=== PATIENT | male | born 1945 | race Hispanic/Latino ===

== ENCOUNTER → 2018-10-25 | Outpatient (CLI) | payer MEDICARE ==
--- NOTE | 2018-10-25 13:26 | Diagnostic Imaging Report ---
EXAM: CT ABDOMEN AND PELVIS without IV CONTRAST DATE: 10/25/2018 Time stamp on Exam: 9:50 AM INDICATION: Hematuria COMPARISON: CT scan of the abdomen and pelvis dated 08/19/2015 TECHNIQUE: The abdomen and pelvis were scanned using a multidetector helical scanner. Coronal and sagittal reformations were obtained. Routine protocol performed. Low-dose technique was utilized to maintain the lowest effective dose to the patient. IV Contrast: None Oral Contrast: None Radiation Dose: Total DLP 756.87 mGy*cm Estimated effective dose: DLP x 0.015 x size factor FINDINGS: LOWER THORAX: No consolidations or nodules. Coronary artery calcification. LIVER: No masses BILIARY: The gallbladder is unremarkable. No ductal dilatation. SPLEEN: No masses PANCREAS: No masses ADRENALS: No nodules KIDNEYS: Nonobstructing left interpolar 4 mm stone. No masses. No hydronephrosis. GI TRACT: Postsurgical changes associated with a gastrectomy. VESSELS: Atherosclerotic calcification. PERITONEUM/RETROPERITONEUM: No free air or fluid LYMPH NODES: No lymphadenopathy REPRODUCTIVE ORGANS: Unremarkable BLADDER: Large stone previously present in the bladder that measured 1.9 cm now is represented by two small stones with composite measurement of 0.7 cm and situated to the left side of the bladder. Prostate is enlarged measuring 6.1 x 7.0 cm. SOFT TISSUES: Small fat-containing umbilical hernia. BONES: No suspicious lytic or blastic bone lesions. Disc space narrowing at L5-S1. IMPRESSION: 1. Nonobstructing left renal stone. 2. Bladder stones with stone burden less than compared to previous study. 3. Significant prostate enlargement. Signed by: Dr. Reese Rose DO on 10/25/2018 1:23 PM
== END ==
LOC: CT 09:07
PROVIDERS: ATTEND Emergency Medicine
DX: R31.9 Hematuria, unspecified (principal)
CPT/HCPCS: 74176

== ENCOUNTER → 2019-02-01 | Outpatient (CLI) | payer MEDICARE ==
--- NOTE | 2019-02-01 15:33 | Diagnostic Imaging Report ---
Exam: AP pelvis and right hip History: Pain Comparison: None. Findings: No fracture or malalignment. Minimal joint space narrowing without osteophytosis. Cyst in the right femoral neck. No abnormal soft tissue calcification or soft tissue defect. Impression: No acute osseous abnormality Signed by: Dr. Marlon Fink M.D. on 02/01/2019 3:30 PM
== END ==
LOC: RAD 13:29
PROVIDERS: ATTEND Emergency Medicine
DX: M25.559 Pain in unspecified hip (principal)

== ENCOUNTER 2019-12-31 20:15 | Emergency (ER) | payer MEDICARE ==
[~2019-12-31] VITALS: Ht 177.8 cm; Wt 104.3 kg
--- OUTSIDE RECORDS SUMMARY | 2019-12-31 20:19 | XMS REPORT | Summary of Care ---
Author Author [facility] Organization [facility] Address Unknown Phone Unavailable Encounter KILLIAN Shields(LORA) [id number] Date(s): 01/29/16 - 01/29/16 [facility] [address] [place] [address]- [phone] Discharge Disposition: Home Attending Physician: Jimmie Polanco MD Referring Physician: Jimmie Polanco MD Vital Signs 1 2 3 Most recent to oldest [Reference Range]: 172.72 cm (01/22/16 4:03 PM) Height 97.7 DegF (01/22/16 4:03 PM) Temperature Oral [96.4-99.1 DegF] 113/77 mmHg (01/29/16 9:45 AM) 108/60 mmHg (01/29/16 9:30 AM) 126/69 mmHg (01/29/16 9:15 AM) Blood Pressure [90-140/60-90 mmHg] 19 BRMIN (01/29/16 8:54 AM) 12 BRMIN *LOW* (01/29/16 8:39 AM) 10 BRMIN *LOW* (01/29/16 8:23 AM) Respiratory Rate [14-20 BRMIN] 70 bpm (01/22/16 4:03 PM) Peripheral Pulse Rate [60-100 bpm] 102.528 kg (01/22/16 4:03 PM) Weight 34.37 m2 (01/22/16 4:03 PM) Body Mass Index Problem List Condition Effective Dates Status Health Status Informan t Acid Resolved reflux(Confirmed) Anemia1 Active Anxiety(Confirmed) Resolved Bleeding Active precautions(Confirme d) BPH - Benign Resolved prostatic hypertrophy(Confirme d) Bronchitis(Confirmed Resolved ) CAD - Coronary Active artery disease(Confirmed) Cancer(Confirmed)2 Resolved Chemotherapy(Confirm Active ed) Chemotherapy(Confirm Resolved ed) Cough(Confirmed) Resolved Depression(Confirmed Resolved ) Diabetes Resolved mellitus(Confirmed) DVT - Deep vein Active thrombosis(Confirmed )3 Gastrectomy(Confirme Active d) Gastric Active cancer(Confirmed) HTN - Active Hypertension(Confirm ed) Hypercholesterolemia Active 4 Hypertension(Confirm Resolved ed) Hypotension due to Resolved drugs(Confirmed)5 Nausea(Confirmed) Resolved Obesity(Confirmed) Active Reflux(Confirmed) Resolved Shortness of Resolved breath(Confirmed)6 VRE(Confirmed)7, 8 Active Weakness - Resolved general(Confirmed) 1Data migrated from [employer] on 01/20/15. 2stomach 3Left Arm 4Data migrated from [employer] on 01/20/15. 5associated with chemo therapy 6pt denies having any chest pain with shortness of breath /12/30 left leg wound 8Problem added by Discern Expert. Allergies, Adverse Reactions, Alerts Substance Reaction Severity Status iodinated radiocontrast Swelling, NOS Active dyes1 1Data migrated from [employer] on 03/19/15. Originally documented as CONTRAST DYE. swelling Medications Cipro I.V. 400 mg/200 mL intravenous solution 400 mg, 200 mL, Route: IVPB, Drug form: INJ, ONCE, Dosing Weight 102.528, kg, St art date: 01/29/16 6:30:00 CDT, Stop date: 01/29/16 6:30:00 CDT Notes: Do not refrigerate Start Date: 01/29/16 Stop Date: 01/29/16 Status: Ordered ciprofloxacin (ANES) Route: IV, Drug form: INJ, ONCE, Stop date: 01/29/16 8:22:00 CDT Start Date: 01/29/16 Stop Date: 01/29/16 Status: Completed ePHEDrine (ANES) Route: IV, Drug form: INJ, ONCE, Stop date: 01/29/16 8:28:00 CDT Start Date: 01/29/16 Stop Date: 01/29/16 Status: Completed fentaNYL (ANES) Route: IV, Drug form: INJ, ONCE, Stop date: 01/29/16 8:27:00 CDT Start Date: 01/29/16 Stop Date: 01/29/16 Status: Completed Lactated Ringers Injection IV 1000 mL 1,000 mL, Rate: 25 ml/hr, Infuse over: 40 hr, Route: IV, Dosing Weight 102.528 k g, Total Volume: 1,000, Start date: 01/29/16 6:12:00 CDT, Duration: 30 day, Stop date: 02/28/16 6:11:00 CDT Start Date: 01/29/16 Stop Date: 01/29/16 Status: Discontinued lidocaine (ANES) Route: IV, Drug form: INJ, ONCE, Stop date: 01/29/16 8:27:00 CDT Start Date: 01/29/16 Stop Date: 01/29/16 Status: Completed LR 1000 mL INJ (ANES) Route: IV, Total Volume: 1,000, Start date: 01/29/16 7:36:00 CDT, Stop date: 06/05 8:36:00 CDT Start Date: 01/29/16 Stop Date: 01/29/16 Status: Completed midazolam (ANES) Route: IV, Drug form: SOLN, ONCE, Stop date: 01/29/16 8:22:00 CDT Start Date: 01/29/16 Stop Date: 01/29/16 Status: Completed ondansetron (ANES) Route: IV, Drug form: INJ, ONCE, Stop date: 01/29/16 8:27:00 CDT Start Date: 01/29/16 Stop Date: 01/29/16 Status: Completed propofol (ANES) Route: IV, Drug form: INJ, ONCE, Stop date: 01/29/16 8:27:00 CDT Start Date: 01/29/16 Stop Date: 01/29/16 Status: Completed Pyridium 100 mg oral tablet 100 mg = 1 tab, PO, TID, PRN Dysuria, X 2 day, # 6 tab, 0 Refill(s) Start Date: 01/29/16 Stop Date: 01/31/16 Status: Completed Results ELECTROLYTES Most recent to 1 oldest [Reference Range]: Sodium Lvl [135-145 141 mEq/L mEq/L] (01/22/16 4:31 PM) Potassium Lvl 3.4 mEq/L [3.5-5.1 mEq/L] *LOW* (01/22/16 4:31 PM) Chloride Lvl [95-109 108 mEq/L mEq/L] (01/22/16 4:31 PM) CO2 [24-32 mEq/L] 22 mEq/L *LOW* (01/22/16 4:31 PM) AGAP [10.0-20.0 14.4 mEq/L mEq/L] (01/22/16 4:31 PM) CHEM PANEL Most recent to 1 oldest [Reference Range]: Creatinine Lvl 1.21 mg/dL [0.50-1.40 mg/dL] (01/22/16 4:31 PM) eGFR 60 mL/min/1.73m2 1 *NA* (01/22/16 4:31 PM) BUN [7-22 mg/dL] 16 mg/dL (01/22/16 4:31 PM) Glucose Lvl [70-99 101 mg/dL mg/dL] *HI* (01/22/16 4:31 PM) Calcium Lvl 8.3 mg/dL [8.5-10.5 mg/dL] *LOW* (01/22/16 4:31 PM) 1Result Comment: The eGFR is calculated using the CKD-EPI formula. In most young, healthy individuals the eGFR will be >90 mL/min/1.73m2. The eGFR declines with age. An eGFR of 60-89 may be normal in some populations, particularly the elderly, for whom the CKD-EPI formula has not been extensively validated. Use of the eGFR is not recommended in the following populations: Individuals with unstable creatinine concentrations, including patients and those with serious co-morbid conditions. Patients with extremes in muscle mass or diet. The data above are obtained from the National Kidney Disease Education Program ( NKDEP) which additionally recommends that when the eGFR is used in patients with extremes of body mass index for purposes of drug dosing, the eGFR should be mul tiplied by the estimated BMI. URINE AND STOOL Most recent to 1 oldest [Reference Range]: UA Turbidity [Clear] Clear (01/22/16 4:31 PM) UA Color [Yellow] Yellow *NA* (01/22/16 4:31 PM) UA pH [5.0-8.0] 5.0 (01/22/16 4:31 PM) UA Spec Grav 1.021 [<=1.030] (01/22/16 4:31 PM) UA Glucose [Negative Negative mg/dL mg/dL] *NA* (01/22/16 4:31 PM) UA Blood [Negative] Negative (01/22/16 4:31 PM) UA Ketones [Negative Negative mg/dL mg/dL] *NA* (01/22/16 4:31 PM) UA Protein [Negative Negative mg/dL mg/dL] (01/22/16 4:31 PM) UA Urobilinogen <=1.0 mg/dL [0.1-1.0 mg/dL] *NA* (01/22/16 4:31 PM) UA Bili [Negative] Negative *NA* (01/22/16 4:31 PM) UA Leuk Est Moderate [Negative] *ABN* (01/22/16 4:31 PM) UA Nitrite Positive [Negative] *ABN* (01/22/16 4:31 PM) UA WBC [0-5 /HPF] 25 /HPF *HI* (01/22/16 4:31 PM) UA RBC [0-2 /HPF] 4 /HPF *HI* (01/22/16 4:31 PM) UA Sq Epi None Seen *NA* (01/22/16 4:31 PM) HEMATOLOGY Most recent to 1 oldest [Reference Range]: WBC [3.7-10.4 K/CMM] 6.9 K/CMM (01/22/16 4:31 PM) RBC [4.70-6.10 4.33 M/CMM M/CMM] *LOW* (01/22/16 4:31 PM) Hgb [14.0-18.0 g/dL] 13.3 g/dL *LOW* (01/22/16 4:31 PM) Hct [42.0-54.0 %] 40.3 % *LOW* (01/22/16 4:31 PM) MCV [80.0-94.0 fL] 93.0 fL (01/22/16 4:31 PM) MCH [27.0-31.0 pg] 30.8 pg (01/22/16 4:31 PM) MCHC [32.0-36.0 33.1 g/dL g/dL] (01/22/16 4:31 PM) RDW [11.5-14.5 %] 14.5 % (01/22/16 4:31 PM) Platelet [133-450 245 K/CMM K/CMM] (01/22/16 4:31 PM) MPV [7.4-10.4 fL] 7.9 fL (01/22/16 4:31 PM) Segs [45.0-75.0 %] 64.7 % (01/22/16 4:31 PM) Lymphocytes 24.3 % [20.0-40.0 %] (01/22/16 4:31 PM) Monocytes [2.0-12.0 8.0 % %] (01/22/16 4:31 PM) Eosinophils [0.0-4.0 2.3 % %] (01/22/16 4:31 PM) Basophils [0.0-1.0 0.7 % %] (01/22/16 4:31 PM) Segs-Bands # 4.5 K/CMM [1.5-8.1 K/CMM] (01/22/16 4:31 PM) Lymphocytes # 1.7 K/CMM [1.0-5.5 K/CMM] (01/22/16 4:31 PM) Monocytes # [0.0-0.8 0.6 K/CMM K/CMM] (01/22/16 4:31 PM) Eosinophils # 0.2 K/CMM [0.0-0.5 K/CMM] (01/22/16 4:31 PM) Basophils # [0.0-0.2 0.1 K/CMM K/CMM] (01/22/16 4:31 PM) Immunizations No data available for this section Procedures Procedure Date Related Diagnosis Body Site Colonoscopy Complete gastrectomy Esophagogastroduodenoscopy Gastrectomy Operation1 Operation2 Operation3 1foot and neck surgeries 2port-a- cath placement 3stomach remove due to cancer Social History Social History Type Response Alcohol Past Smoking Status Never smoker; Exposure to T obacco Smoke None; Cigarette Smoking Last 365 Days No; Reg Smoking Cessation Counseli ng No Assessment and Plan No data available for this section
--- OUTSIDE RECORDS SUMMARY | 2019-12-31 20:19 | XMS REPORT | Summary of Care ---
Author Author [facility] Organization [facility] Address Unknown Phone Unavailable Encounter KILLIAN Shields(LORA) [id number] Date(s): 04/29/15 - 04/29/15 [facility] [address] [place] [address]- Discharge Disposition: Home Attending Physician: Vinh Cotter MD Referring Physician: Vinh Cotter MD Vital Signs 1 2 3 Most recent to oldest [Reference Range]: 172.72 cm (04/24/15 1:55 PM) Height 1 2 3 Most recent to oldest [Reference Range]: 98.0 DegF (04/24/15 2:04 PM) Temperature Oral [96.4-99.1 DegF] 1 2 3 Most recent to oldest [Reference Range]: 139/78 mmHg (04/29/15 12:00 PM) 128/68 mmHg (04/29/15 11:30 AM) 121/53 mmHg (04/29/15 11:00 AM) Blood Pressure [90-140/60-90 mmHg] 1 2 3 Most recent to oldest [Reference Range]: 15 BRMIN (04/29/15 10:30 AM) 16 BRMIN (04/29/15 10:15 AM) 14 BRMIN (04/29/15 10:00 AM) Respiratory Rate [14-20 BRMIN] 1 2 3 Most recent to oldest [Reference Range]: 80 bpm (04/24/15 2:04 PM) Peripheral Pulse Rate [60-100 bpm] 1 2 3 Most recent to oldest [Reference Range]: 99.545 kg (04/24/15 1:55 PM) Weight 1 2 3 Most recent to oldest [Reference Range]: 33.37 m2 (04/24/15 1:55 PM) Body Mass Index Problem List Condition [...] any chest pain with shortness of breath 76// left leg wound 8Problem added by Discern Expert. Allergies, Adverse Reactions, Alerts Substance Reaction Severity Status iodinated radiocontrast Swelling, NOS Active dyes1 1Data migrated from [employer] on 03/19/15. Originally documented as CONTRAST DYE. swelling Medications acetaminophen 1,000 mg, Route: IVPB, Drug form: INJ, ONCE, Dosing Weight 99.545, kg, PRN Pain Score 1-3, Start date: 04/29/15 9:40:00, Duration: 1 doses or times, Stop date: Limited # of times Start Date: 04/29/15 Stop Date: 04/29/15 Status: Discontinued Ancef 2 gm, Route: IVPB, ONCE, Dosing Weight 99.545, kg, Start date: 04/29/15 9:24:00, Duration: 1 doses or times, Stop date: 04/29/15 9:24:00 Start Date: 04/29/15 Stop Date: 04/29/15 Status: Completed Colace 100 mg oral capsule 100 mg = 1 cap, PO, BID, PRN Constipation, # 20 cap, 0 Refill(s) Start Date: 04/29/15 Status: Ordered fentaNYL 50 microgram, Route: IVP, Q5Min, Dosing Weight 99.545, kg, PRN Pain Score 7-10, Start date: 04/29/15 9:40:00, Duration: 2 doses or times, Stop date: Limited # o f times Start Date: 04/29/15 Stop Date: 04/29/15 Status: Discontinued flumazenil 0.2 mg, Route: IVP, PRN, Dosing Weight 99.545, kg, PRN Benzodiazepine Reversal, Initial dose, Start date: 04/29/15 9:40:00, Duration: 30 day, Stop date: 5 9:39:00 Start Date: 04/29/15 Stop Date: 04/29/15 Status: Discontinued hydromorphone 0.5 mg, Route: IVP, Q5Min, Dosing Weight 99.545, kg, PRN Pain Score 7-10, Start date: 04/29/15 9:40:00, Duration: 4 doses or times, Stop date: Limited # of time s Start Date: 04/29/15 Stop Date: 04/29/15 Status: Discontinued Lactated Ringers Injection IV 1000 mL 1,000 mL, Rate: 25 ml/hr, Infuse over: 40 hr, Route: IV, Dosing Weight 99.545 kg , Total Volume: 1,000, Start date: 04/29/15 8:32:00, Duration: 30 day, Stop date : 05/29/15 8:31:00 Start Date: 04/29/15 Stop Date: 04/29/15 Status: Discontinued meperidine 12.5 mg, Route: IVP, Q30Min, Dosing Weight 99.545, kg, PRN Other -See Comment, F or shivering, Start date: 04/29/15 9:40:00, Duration: 2 doses or times, Stop catarino e: Limited # of times Start Date: 04/29/15 Stop Date: 04/29/15 Status: Discontinued naloxone 0.04 mg, Route: IVP, Q2MIN, Dosing Weight 99.545, kg, PRN Narcotic Reversal, Sta rt date: 04/29/15 9:40:00, Duration: 8 doses or times, Stop date: Limited # of t imes Start Date: 04/29/15 Stop Date: 04/29/15 Status: Discontinued ondansetron 4 mg, Route: IVP, ONCE, Dosing Weight 99.545, kg, PRN Nausea & Vomiting, Start date: 04/29/15 9:40:00 Start Date: 04/29/15 Stop Date: 04/29/15 Status: Discontinued oxyCODONE 5 mg, Route: PO, Drug form: TAB, Q4H, Dosing Weight 99.545, kg, PRN Pain Score 4 -6, Start date: 04/29/15 9:40:00, Duration: 30 day, Stop date: 05/29/15 9:39:00 Start Date: 04/29/15 Stop Date: 04/29/15 Status: Discontinued tramadol 50 mg oral tablet 50 mg = 1 tab, PO, Q6H, PRN Pain, X 10 day, # 40 tab, 0 Refill(s) Start Date: 04/29/15 Stop Date: 05/09/15 Status: Ordered Results ELECTROLYTES Most recent to 1 oldest [Reference Range]: Sodium Lvl [135-145 140 mEq/L mEq/L] (04/24/15 2:26 PM) Potassium Lvl 3.7 mEq/L [3.5-5.1 mEq/L] (04/24/15 2:26 PM) Chloride Lvl [95-109 106 mEq/L mEq/L] (04/24/15 2:26 PM) CO2 [24-32 mEq/L] 26 mEq/L (04/24/15 2:26 PM) AGAP [10.0-20.0 11.7 mEq/L mEq/L] (04/24/15 2:26 PM) CHEM PANEL Most recent to 1 oldest [Reference Range]: Creatinine Lvl 1.1 mg/dL [0.5-1.4 mg/dL] (04/24/15 2:26 PM) eGFR 68 mL/min/1.73m2 1 *NA* (04/24/15 2:26 PM) BUN [7-22 mg/dL] 18 mg/dL (04/24/15 2:26 PM) B/C Ratio [6-25] 16 (04/24/15 2:26 PM) Glucose Lvl [70-99 101 mg/dL mg/dL] *HI* (04/24/15 2:26 PM) Total Protein 7.4 g/dL [6.4-8.4 g/dL] (04/24/15 2:26 PM) Albumin Lvl [3.5-5.0 3.7 g/dL g/dL] (04/24/15 2:26 PM) Globulin [2.0-4.0 3.7 g/dL g/dL] (04/24/15 2:26 PM) A/G Ratio [0.7-1.6] 1.0 (04/24/15 2:26 PM) Calcium Lvl 8.6 mg/dL [8.5-10.5 mg/dL] (04/24/15 2:26 PM) ALT [0-65 unit/L] 46 unit/L (04/24/15 2:26 PM) AST [0-37 unit/L] 25 unit/L (04/24/15 2:26 PM) Alk Phos [39-136 117 unit/L unit/L] (04/24/15 2:26 PM) Bili Total [0.2-1.3 0.4 mg/dL mg/dL] (04/24/15 2:26 PM) 1Result Comment: The eGFR is calculated [...] be mul tiplied by the estimated BMI. HEMATOLOGY Most recent to 1 oldest [Reference Range]: WBC [3.7-10.4 K/CMM] 6.8 K/CMM (04/24/15 2:26 PM) RBC [4.70-6.10 4.31 M/CMM M/CMM] *LOW* (04/24/15 2:26 PM) Hgb [14.0-18.0 g/dL] 13.2 g/dL *LOW* (04/24/15 2:26 PM) Hct [42.0-54.0 %] 40.2 % *LOW* (04/24/15 2:26 PM) MCV [80.0-94.0 fL] 93.3 fL (04/24/15 2:26 PM) MCH [27.0-31.0 pg] 30.6 pg (04/24/15 2:26 PM) MCHC [32.0-36.0 32.9 g/dL g/dL] (04/24/15 2:26 PM) RDW [11.5-14.5 %] 14.6 % *HI* (04/24/15 2:26 PM) Platelet [133-450 231 K/CMM K/CMM] (04/24/15 2:26 PM) MPV [7.4-10.4 fL] 8.0 fL (04/24/15 2:26 PM) Segs [45.0-75.0 %] 66.5 % (04/24/15 2:26 PM) Lymphocytes 22.3 % [20.0-40.0 %] (04/24/15 2:26 PM) Monocytes [2.0-12.0 9.5 % %] (04/24/15 2:26 PM) Eosinophils [0.0-4.0 1.2 % %] (04/24/15 2:26 PM) Basophils [0.0-1.0 0.5 % %] (04/24/15 2:26 PM) Segs-Bands # 4.5 K/CMM [1.5-8.1 K/CMM] (04/24/15 2:26 PM) Lymphocytes # 1.5 K/CMM [1.0-5.5 K/CMM] (04/24/15 2:26 PM) Monocytes # [0.0-0.8 0.6 K/CMM K/CMM] (04/24/15 2:26 PM) Eosinophils # 0.1 K/CMM [0.0-0.5 K/CMM] (04/24/15 2:26 PM) Immunizations No data available for this section Procedures Procedure Date Related Diagnosis Body Site Colonoscopy Complete gastrectomy Esophagogastroduodenoscopy Gastrectomy Operation1 Operation2 Operation3 1port-a- cath placement 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 Social History Social History Type Response Smoking Status Never smoker; Exposure to T obacco Smoke None; Cigarette Smoking Last 365 Days No; Reg Smoking Cessation Counseli ng No Assessment and Plan No data available for this section
--- OUTSIDE RECORDS SUMMARY | 2019-12-31 20:19 | XMS REPORT | CCD ---
Author Author [facility] Address Unknown Phone Unavailable Care Team Providers Care Registered Dietician Name Role Phone Candido Walters CP Allergies, Adverse Reactions, Alerts Substance Reaction Status iodinated radiocontrast dyes Active Problem List Condition Effective Dates Status Bleeding precautions Active BPH - Benign prostatic hypertrophy Resolved CAD - Coronary artery disease Active Cancer1 Resolved Chemotherapy Active Diabetes mellitus Resolved DVT - Deep vein thrombosis2 Active Gastrectomy Active Gastric cancer Active HTN - Hypertension Active poor circulation of legs Resolved Reflux Resolved VRE3, 4 Active 1stomach 2Left Arm left leg wound 4Problem added by Discern Expert. Results TUMOR MARKERS Most recent to oldest [Reference Range]: 1 CEA [0.0-3.0 ng/mL] 6.0 ng/mL *HI* (02/25/2013 16:58:00) CHEMISTRY Most recent to oldest [Reference Range]: 1 Sodium Lvl [135-145 mEq/L] 141 mEq/L (02/25/2013 16:58:00) Potassium Lvl [3.5-5.1 mEq/L] 3.9 mEq/L (02/25/2013 16:58:00) Chloride Lvl [95-109 mEq/L] 107 mEq/L (02/25/2013 16:58:00) CO2 [24-32 mEq/L] 25 mEq/L (02/25/2013 16:58:00) AGAP [10.0-20.0 mEq/L] 12.9 mEq/L (02/25/2013 16:58:00) Creatinine Lvl [0.5-1.4 mg/dL] 1.2 mg/dL (02/25/2013 16:58:00) eGFR 62 mL/min/1.73m2 1 *NA* (02/25/2013 16:58:00) BUN [7-22 mg/dL] 22 mg/dL (02/25/2013 16:58:00) B/C Ratio [6-25] 18 (02/25/2013 16:58:00) Glucose Lvl [70-99 mg/dL] 117 mg/dL 2 *HI* (02/25/2013 16:58:00) Total Protein [6.4-8.4 g/dL] 6.5 g/dL (02/25/2013 16:58:00) Albumin Lvl [3.5-5.0 g/dL] 3.7 g/dL (02/25/2013 16:58:00) Globulin [2.0-4.0 g/dL] 2.8 g/dL (02/25/2013:58:00) A/G Ratio [0.7-1.6] 1.3 (02/25/2013 16:58:00) Calcium Lvl [8.5-10.5 mg/dL] 8.4 mg/dL *LOW* (02/25/2013 16:58:00) ALT [0-65 unit/L] 32 unit/L (02/25/2013 16:58:00) AST [0-37 unit/L] 18 unit/L (02/25/2013 16:58:00) Alk Phos [39-136 unit/L] 109 unit/L (02/25/2013 16:58:00) Bili Total [0.2-1.3 mg/dL] 0.5 mg/dL (02/25/2013 16:58:00) 1Result Comment: The eGFR is calculated using [...] be mul tiplied by the estimated BMI. 2Interpretive Data: Adult reference range values reflect the clinical guidelines of the [place] [employer]. HEMATOLOGY Most recent to oldest [Reference Range]: 1 WBC [3.7-10.4 K/CMM] 2.0 K/CMM *LOW* (02/25/2013 16:58:00) RBC [4.70-6.10 M/CMM] 3.61 M/CMM *LOW* (02/25/2013 16:58:00) Hgb [14.0-18.0 g/dL] 10.9 g/dL *LOW* (02/25/2013 16:58:00) Hct [42.0-54.0 %] 33.3 % *LOW* (02/25/2013 16:58:00) MCV [80.0-94.0 fL] 92.3 fL (02/25/2013 16:58:00) MCH [27.0-31.0 pg] 30.3 pg (02/25/2013 16:58:00) MCHC [32.0-36.0 g/dL] 32.8 g/dL (02/25/2013 16:58:00) RDW [11.5-14.5 %] 14.7 % *HI* (02/25/2013 16:58:00) Platelet [133-450 K/CMM] 394 K/CMM (02/25/2013 16:58:00) MPV [7.4-10.4 fL] 8.0 fL (02/25/2013 16:58:00) Segs [45.0-75.0 %] 19.3 % *LOW* (02/25/2013 16:58:00) Lymphocytes [20.0-40.0 %] 41.0 % *HI* (02/25/2013 16:58:00) Monocytes [2.0-12.0 %] 39.0 % *HI* (02/25/2013 16:58:00) Eosinophils [0.0-4.0 %] 0.1 % (02/25/2013 16:58:00) Basophils [0.0-1.0 %] 0.6 % (02/25/2013 16:58:00) Segs-Bands # [1.5-8.1 K/CMM] 0.4 K/CMM *LOW* (02/25/2013 16:58:00) Lymphocytes # [1.0-5.5 K/CMM] 0.8 K/CMM *LOW* (02/25/2013 16:58:00) Monocytes # [0.0-0.8 K/CMM] 0.8 K/CMM (02/25/2013 16:58:00) Eosinophils # [0.0-0.5 K/CMM] 0.0 K/CMM (02/25/2013 16:58:00) Basophils # [0.0-0.2 K/CMM] 0.0 K/CMM (02/25/2013 16:58:00) RBC Morph Normal (02/25/2013 16:58:00) Plt Morph Normal (02/25/2013 16:58:00)
--- OUTSIDE RECORDS SUMMARY | 2019-12-31 20:19 | XMS REPORT | CCD ---
Author Author [facility] Address Unknown Phone Unavailable Care Team Providers Care Block Captain Name Role Phone Josiah Madison RP Allergies, Adverse Reactions, Alerts Substance Reaction Status iodinated radiocontrast dyes Active Medications Medication Instructions Start Date End Date Status ropinirole 0.25 mg 0.25 mg, 1 tab, PO, Daily, 90 tab, 012 Ordered oral tablet Substitution Allowed, 1 to 3 hours before bedtime, TAB 1 to 3 hours before bedtime ProAir HFA 90 2 puff, INHALATION, Q4H, PRN, 9 gm, 09/06/2011 Ordered mcg/inh inhalation for wheezing, Substitution Allowed, aerosol with adapter Maintenance, AERO hydrochlorothiazide 25 mg, 1 tab, PO, Daily, 30 tab, 09/06/19 12 Ordered 25 mg oral tablet Substitution Allowed Bystolic 10 mg oral 10 mg, 1 tab, PO, Daily, 30 tab, 09/06/19 12 Ordered tablet Substitution Allowed, TAB Ancef 2 gm, Route: IVPB, ONCE, Start 09/06/2011 09/06/19 12 Completed date: 09/06/11 8:27:00, Duration: 1 doses or times, Stop date: 09/06/11 8:27:00 [place] 5/325 oral 1-2 tab, PO, Q4-6H, PRN, 30 tab, 09/06/2011 0 09/11/2011 Ordered tablet Pain, Substitution Allowed, Maintenance amoxicillin 500 mg 500 mg, 1 cap, PO, BID, 30 cap, 09/06/2011 Ordered oral capsule Substitution Allowed, CAP ondansetron 4 mg, 2 mL, Route: IVP, Drug form: 09/06/201108/21 Discontinued INJ, ONCE, PRN Nausea & Vomiting, Start date: 09/06/11 9:52:00 acetaminophen-hydroc 2 tab, Route: PO, Drug Form: TAB, 201109/06/2011 Discontinued odone 325 mg-5 mg Q4H, PRN Pain Score 4-6, St art oral tablet date: 09/06/11 9:52:00, Dur ation: 30 day, Stop date: 10/06/11 9:51:00 acetaminophen-hydroc 1 tab, Route: PO, Drug Form: TAB, 201109/06/2011 Discontinued odone 325 mg-5 mg Q4H, PRN Pain Score 1-3, St art oral tablet date: 09/06/11 9:52:00, Dur ation: 30 day, Stop date: 10/06/11 9:51:00 hydromorphone 0.5 mg, 0.5 mL, Route: IVP, Drug 09/06/201108/21 Discontinued form: SOLN, Q5Min, PRN Pain Score 4-6, Start date: 09/06/11 9:52:00, Duration: 5 doses or times, Stop date: Limited # of times fentanyl 25 microgram, 0.5 mL, Route: IVP, 09/06/201109/06 Discontinued Drug form: INJ, Q5Min, PRN Pain Score 4-6, Start date: 09/06/11 9:52:00, Duration: 4 doses or times, Stop date: Limited # of times flumazenil 0.2 mg, 2 mL, Route: IVP, Drug 09/06/2011 09/06/19 Discontinued form: INJ, PRN, PRN Other -See Comment, Initial dose, Start date: 09/06/11 9:52:00, Duration: 5 doses or times, Stop date: Limited # of times meperidine 12.5 mg, 0.25 mL, Route: IVP, Drug 09/06/201108/21 Discontinued form: INJ, Q30Min, PRN Other -See Comment, For shivering, Start date: 09/06/11 9:52:00, Duration: 2 doses or times, Stop date: Limited # of times morphine Sulfate 2 mg, 1 mL, Route: IVP, Drug form: 09/06/2011 09/06/2011 Discontinued INJ, Q5Min, PRN Pain Score 4-6, Start date: 09/06/11 9:52:00, Duration: 8 doses or times, Stop date: Limited # of times naloxone 0.04 mg, 0.1 mL, Route: IVP, Drug 09/06/201109/06 Discontinued form: INJ, Q2MIN, PRN Narcotic Reversal, Start date: 09/06/11 9:52:00, Duration: 8 doses or times, Stop date: Limited # of times Lactated Ringers 1,000 mL, Rate: 25 ml/hr, Infuse 09/06/2011 0 09/06/2011 Discontinued Injection IV 1,000 over: 40 hr, Route: IV, Tot al mL Volume: 1,000, Start date: 09/06/11 8:26:00, Duration: 30 day, Stop date: 10/06/11 8:25:00 lidocaine 1% 0.5 mL, Route: SUB-Q, ONCALL, Start 09/06/2011 Canceled date: 09/06/11 9:00:00, Duration: 1 doses or times clarithromycin 500 500 mg, 1 tab, PO, Q12H, 20 tab, 2 Ordered mg oral tablet Substitution Allowed, TAB multivitamin 1 tab, PO, Daily, Substitution 09/06/2011 Ordered Allowed, Maintenance Metamucil 2 tabs, PO, TID, Substitution 09/06/2011 Ordered Allowed, Maintenance Niaspan ER 500 mg 500 mg, 1 tab, PO, Bedtime, 90 tab, 012 Ordered oral tablet, Substitution Allowed, ERTAB extended release Vital Signs Most recent to oldest [Reference Range]: 1 2 3 Height 172.72 cm (09/06/2011 07:43:00) Temperature Oral [96.4-99.1 DegF] 97.6 DegF (09/06/2011 07:35:00) Systolic Blood Pressure [90-140 mmHg] 111 mmHg (09/06/2011 11:00:00) 101 mmHg (09/06/2011 10:30:00) 95 mmHg (09/06/2011 10:15:00) Diastolic Blood Pressure [60-90 mmHg] 79 mmHg (09/06/2011 11:00:00) 68 mmHg (09/06/2011 10:30:00) 72 mmHg (09/06/2011 10:15:00) Respiratory Rate [14-20 BRMIN] 12 BRMIN *LOW* (09/06/2011 10:30:00) 13 BRMIN *LOW* (09/06/2011 10:15:00) 14 BRMIN (09/06/2011 10:00:00) Peripheral Pulse Rate [60-100 bpm] 65 bpm (09/06/2011 08:50:00) 82 bpm (09/06/2011 07:35:00) Weight 106.818 kg (09/06/2011 07:43:00) Results CHEMISTRY Most recent to oldest [Reference Range]: 1 Sodium Lvl [135-145 mEq/L] 141 mEq/L (09/06/2011 07:50:00) Potassium Lvl [3.5-5.1 mEq/L] 4.5 mEq/L (09/06/2011 07:50:00) Chloride Lvl [95-109 mEq/L] 105 mEq/L (09/06/2011 07:50:00) CO2 [24-32 mEq/L] 26 mEq/L (09/06/2011 07:50:00) AGAP [10.0-20.0 mEq/L] 14.5 mEq/L (09/06/2011 07:50:00)
--- OUTSIDE RECORDS SUMMARY | 2019-12-31 20:19 | XMS REPORT | CCD ---
Author Author [facility] Address Unknown Phone Unavailable Care Team Providers Care Cardroom Supervisor Name Role Phone Guido Carney V RP Allergies, Adverse Reactions, Alerts Substance Reaction [...] leg wound 4Problem added by Discern Expert. Medications Medication Instructions Start Date End Date Status Sodium Chloride 0.9% 1,000 mL, Rate: 25 ml/hr, Infuse 02/26/2013 02/26/2013 Discontinued IV 1000 mL over: 40 hr, Route: IV, Dos ing Weight 97.727 kg, Total Volume: 1,000, Start date: 02/26/13 12:02:00, Duration: 30 day, Stop date: 03/28/13 12:01:00 [place] 7.5/325 oral 1 tab, PO, Q4H, PRN, for pain, 02/25/2013 Ordered tablet Substitution Allowed, Maint enance, TAB Vital Signs Most recent to oldest [Reference Range]: 1 2 3 Height 172.72 cm (02/26/2013 11:12:00) 172.72 cm (02/25/2013 16:47:00) Temperature Oral [96.4-99.1 DegF] 98 DegF (02/25/2013 16:49:00) Systolic Blood Pressure [90-140 mmHg] 106 mmHg (02/26/2013 12:13:00) 117 mmHg (02/26/2013 11:50:00) 98 mmHg (02/26/2013 11:36:00) Diastolic Blood Pressure [60-90 mmHg] 60 mmHg (02/26/2013 12:13:00) 69 mmHg (02/26/2013 11:50:00) 63 mmHg (02/26/2013 11:36:00) Respiratory Rate [14-20 BRMIN] 16 BRMIN (02/26/2013 12:13:00) 18 BRMIN (02/26/2013 11:50:00) 18 BRMIN (02/26/2013 11:36:00) Peripheral Pulse Rate [60-100 bpm] 60 bpm (02/26/2013 12:13:00) 59 bpm *LOW* (02/26/2013 11:50:00) 64 bpm (02/26/2013 11:36:00) Weight 97.727 kg (02/26/2013 11:12:00) 97.727 kg (02/25/2013 16:47:00) Procedures Procedures Date Related Diagnosis Colonoscopy Esophagogastroduodenoscopy Operation 1 Operation 2 Operation 3 1port-a- cath placement 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
--- OUTSIDE RECORDS SUMMARY | 2019-12-31 20:19 | XMS REPORT | CCD ---
Author Author [facility] Address Unknown Phone Unavailable Care Team Providers Care Clinic Office Assistant Name Role Phone Candido Walters CP Allergies, [...]
--- OUTSIDE RECORDS SUMMARY | 2019-12-31 20:19 | XMS REPORT | CCD ---
Author Author [facility] Butler [facility] Address Unknown Phone Unavailable Care Team Providers Care Software Test Developer Name Role Phone Carole Gifford RP Allergies, Adverse Reactions, Alerts Substance Reaction Status iodinated radiocontrast dyes Active Medications Medication Instructions Start Date End Date Status LR IV 1,000 mL 1,000 mL, Rate: 40 ml/hr, Infuse 09/08/2011 Discontinued over: 25 hr, Route: IV, Total Volume: 1,000, Start date: 09/08/11 8:48:00, Duration: 30 day, Stop date: 10/08/11 8:47:00 Vital Signs Most recent to oldest [Reference Range]: 1 2 3 Height 172.72 cm (09/07/2011 15:46:00) Systolic Blood Pressure [90-140 mmHg] 109 mmHg (09/08/2011 10:15:00) 86 mmHg *LOW* (09/08/2011 10:00:00) 81 mmHg *LOW* (09/08/2011 09:45:00) Diastolic Blood Pressure [60-90 mmHg] 50 mmHg *LOW* (09/08/2011 10:15:00) 44 mmHg *LOW* (09/08/2011 10:00:00) 44 mmHg *LOW* (09/08/2011 09:45:00) Respiratory Rate [14-20 BRMIN] 18 BRMIN (09/08/2011 10:15:00) 18 BRMIN (09/08/2011 10:00:00) 18 BRMIN (09/08/2011 09:45:00) Peripheral Pulse Rate [60-100 bpm] 88 bpm (09/08/2011 10:15:00) 78 bpm (09/08/2011 10:00:00) 75 bpm (09/08/2011 09:45:00) Weight 107.273 kg (09/07/2011 15:46:00)
--- OUTSIDE RECORDS SUMMARY | 2019-12-31 20:19 | XMS REPORT | Summary of Care ---
Author Author [facility] Address Unknown Phone Unavailable Encounter KILLIAN Shields(LORA) [id number] Date(s): 12/11/15 - 12/11/15 [facility] [address] [place] [address]- Discharge Disposition: Home Attending Physician: Jimmie Polanco MD Vital Signs No data available for this section Problem List Condition Effective Dates Status Health [...] any chest pain with shortness of breath left leg wound 8Problem added by Discern Expert. Allergies, Adverse Reactions, Alerts Substance Reaction Severity Status iodinated radiocontrast Swelling, NOS Active dyes1 1Data migrated from [employer] on 03/19/15. Originally documented as CONTRAST DYE. swelling Medications No data available for this section Results No data available for this section Immunizations No data available for this section Procedures Procedure Date Related Diagnosis Body Site Colonoscopy Complete gastrectomy Esophagogastroduodenoscopy Gastrectomy Operation1 Operation2 Operation3 1foot and neck surgeries 2port-a- cath placement 3stomach remove due to cancer Social History Social History Type Response Smoking Status Never smoker; Exposure to T obacco Smoke None; Cigarette Smoking Last 365 Days No; Reg Smoking Cessation Counseli jesica No Assessment and Plan No data available for this section
--- OUTSIDE RECORDS SUMMARY | 2019-12-31 20:19 | XMS REPORT | CCD ---
Author Author [employer] [facility] Butler [facility] Address Unknown Phone Unavailable Care Team Providers Care Health And Safety Specialist Name Role Phone Candido Walters CP Allergies, [...] oldest [Reference Range]: 1 CEA [0.0-3.0 ng/mL] 5.1 ng/mL *HI* (03/26/2013 12:37:00) CHEMISTRY Most recent to oldest [Reference Range]: 1 Sodium Lvl [135-145 mEq/L] 141 mEq/L (03/26/2013 12:37:00) Potassium Lvl [3.5-5.1 mEq/L] 4.3 mEq/L (03/26/2013 12:37:00) Chloride Lvl [95-109 mEq/L] 105 mEq/L (03/26/2013 12:37:00) CO2 [24-32 mEq/L] 24 mEq/L (03/26/2013 12:37:00) AGAP [10.0-20.0 mEq/L] 16.3 mEq/L (03/26/2013 12:37:00) Creatinine Lvl [0.5-1.4 mg/dL] 1.1 mg/dL (03/26/2013 12:37:00) eGFR 69 mL/min/1.73m2 1 *NA* (03/26/2013 12:37:00) BUN [7-22 mg/dL] 25 mg/dL *HI* (03/26/2013 12:37:00) B/C Ratio [6-25] 23 (03/26/2013:37:00) Glucose Lvl [70-99 mg/dL] 143 mg/dL 2 *HI* (03/26/2013:37:00) Total Protein [6.4-8.4 g/dL] 6.8 g/dL (03/26/2013:37:00) Albumin Lvl [3.5-5.0 g/dL] 4.0 g/dL (03/26/2013:37:00) Globulin [2.0-4.0 g/dL] 2.8 g/dL (03/26/2013:37:00) A/G Ratio [0.7-1.6] 1.4 (03/26/2013:37:00) Calcium Lvl [8.5-10.5 mg/dL] 8.9 mg/dL (03/26/2013:37:00) ALT [0-65 unit/L] 34 unit/L (03/26/2013:37:00) AST [0-37 unit/L] 24 unit/L (03/26/2013:37:00) Alk Phos [39-136 unit/L] 114 unit/L (03/26/2013:37:00) Bili Total [0.2-1.3 mg/dL] 0.7 mg/dL (03/26/2013:37:00) 1Result Comment: The eGFR is calculated using [...] values reflect the clinical guidelines of the [place] [employer]. HEMATOLOGY Most recent to oldest [Reference Range]: 1 WBC [3.7-10.4 K/CMM] 3.0 K/CMM *LOW* (03/26/2013 12:37:00) RBC [4.70-6.10 M/CMM] 3.85 M/CMM *LOW* (03/26/2013:37:00) Hgb [14.0-18.0 g/dL] 11.9 g/dL *LOW* (03/26/2013:37:00) Hct [42.0-54.0 %] 35.9 % *LOW* (03/26/2013:37:00) MCV [80.0-94.0 fL] 93.3 fL (03/26/2013:37:00) MCH [27.0-31.0 pg] 30.8 pg (03/26/2013:37:00) MCHC [32.0-36.0 g/dL] 33.0 g/dL (03/26/2013:37:00) RDW [11.5-14.5 %] 16.7 % *HI* (03/26/2013:37:00) Platelet [133-450 K/CMM] 228 K/CMM (03/26/2013:37:00) MPV [7.4-10.4 fL] 8.8 fL (03/26/2013:37:00) Segs [45.0-75.0 %] 63.2 % (03/26/2013:37:00) Lymphocytes [20.0-40.0 %] 28.1 % (03/26/2013:37:00) Monocytes [2.0-12.0 %] 1.4 % *LOW* (03/26/2013:37:00) Eosinophils [0.0-4.0 %] 6.9 % *HI* (03/26/2013:37:00) Basophils [0.0-1.0 %] 0.4 % (03/26/2013:37:00) Segs-Bands # [1.5-8.1 K/CMM] 1.9 K/CMM (03/26/2013 12:37:00) Lymphocytes # [1.0-5.5 K/CMM] 0.8 K/CMM *LOW* (03/26/2013 12:37:00) Monocytes # [0.0-0.8 K/CMM] 0.0 K/CMM (03/26/2013 12:37:00) Eosinophils # [0.0-0.5 K/CMM] 0.2 K/CMM (03/26/2013 12:37:00) Basophils # [0.0-0.2 K/CMM] 0.0 K/CMM (03/26/2013 12:37:00)
--- OUTSIDE RECORDS SUMMARY | 2019-12-31 20:19 | XMS REPORT | Summary of Care ---
Author Author [facility] Organization [facility] Address Unknown Phone Unavailable Encounter KILLIAN Shields(LORA) [id number] Date(s): 01/07/17 - 01/07/17 [facility] [address] [place] [address]- Discharge Disposition: Home or Self Care Attending Physician: Candido Walters MD Referring Physician: Candido Walters MD Vital Signs No data available for [...] any chest pain with shortness of breath 76/12/30 left leg wound 8Problem added by Discern [...]
--- OUTSIDE RECORDS SUMMARY | 2019-12-31 20:19 | XMS REPORT | Continuity of Care Document ---
Author Author [facility] [employer] Address Unknown Phone Unavailable Care Team Providers Care Core Placer Name Role Phone [employer] Unavailable Un available Problems Problem Status Onset Date Classification Date Reported Comments Source C16.0 Active 01/04/2017 [facility] UNK Active 0 12/25/2015 [facility] KIDNEY STONE Active 11/05/2015 [facility] V58.81 Active 04/13/2015 [facility] GASTRIC 151.9 Active 10/28/2014 [facility] 151.3 CANCER OF FUNDUS OF STOMACHREST Active 10/24/2014 [facility] 151.3=CANCER OF FUNDUS OF STOMACH Active 01/03/2014 [facility] 578.1 Active 02/25/2013 [facility] ESOPHAGEAL CA Active 06/27/2012 [facility] GASTRIC CA 151.9/787.20 Active 09/07/2011 [facility] GASTRIC CA 151.9/787.20. Active 09/07/2011 [facility] LUNG CA Active 08/31/2011 [facility] [place] [id number] MEDIPORT PLACEMENT Active 08/31/2011 [facility] ESOPHAGEAL CANCER Active 08/29/2011 [facility] EG JUNCTION, GASTRIC MASS... PT HAS IODINE ALLERGY DR' S Active 08/24/[address] [facility] [address] COUGH, 786.2 Active 08/12/2011 [facility] ANEMIA Active 08/12/2011 [facility] Gastroesophageal reflux disease (disorder) Resolved Problem 01/10/2017 [facility] Anemia (disorder) Active Problem 01/10/2017 Data migrated from [employer] on 01/20/15. [facility] Anxiety (finding) Resolved Problem 01/10/2017 [facility] Bleeding precautions (procedure) Active Problem [facility] Benign prostatic hyperplasia (disorder) Resolved Problem 01/10/2017 [facility] Bronchitis (disorder) Resolved Problem 01/10/2017 [facility] Coronary arteriosclerosis (disorder) Active Problem [facility] Malignant neoplastic disease (disorder) Resolved Problem 01/10/2017 stomach [facility] Administration of antineoplastic agent (procedure) Active Problem 01/10/2017 [facility] Chemotherapy (procedure) Resol hunter Problem [facility] Cough (finding) Resolved Problem 01/10/2017 [facility] Depression - motion (qualifier value) Resolved Problem 01/10/2017 [facility] Diabetes mellitus (disorder) R esolved Problem [facility] Deep venous thrombosis (disorder) Active Problem Left Arm [facility] Gastrectomy (procedure) Active Problem 01/10/2017 [facility] Malignant tumor of stomach (disorder) Active Problem [facility] Hypertensive disorder, systemic arterial (disorder) Active Problem 01/10/2017 [facility] Hypercholesterolemia (disorder) Active Problem Data migrated from [facility] on . 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 [facility] Asthenia (finding) Resolved Problem 01/10/2017 [facility] Bleeding precautions Active Problem 03/29/2013 [facility] BPH - Benign prostatic hypertrophy Resolved Problem 04/2013 [facility] CAD - Coronary artery disease Active Problem 04/2013 [facility] Cancer Resolved Problem 03/29/2013 1stomach [facility] [place] Chemotherapy Active Problem 03/29/2013 [facility] Diabetes mellitus Resolved Problem 03/29/2013 [facility] DVT - Deep vein thrombosis Act vazquez Problem 04/2013 2Left Arm [facility] [place] Gastrectomy Active Problem 03/29/2013 [facility] [place] Gastric cancer Active Problem 03/29/2013 [facility] HTN - Hypertension Active Problem 03/29/2013 [facility] poor circulation of legs Resol hunter Problem 04/2013 [facility] Reflux Resolved Problem 03/29/2013 [facility] 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 [facility] poor circulation of legs(Confirmed) Resolved Problem [facility] LEG PAIN/SWELLING, DYSPNEA Act vazquez [facility] BLOOD IN STOOL Active [facility] BLOOD WORK EVERY WEEK Active [facility] 151.3. Active [facility] REGINA STOMACH FUNDUS Active [facility] LABS Active [facility] REGINA STOMACH CARDIA Active [facility] CALCULUS IN BLADDER Active [facility] MALIGNANT NEOPLASM OF CARDIA A ctive [facility] Medications Medication Details Route Status Patient Instructions Ordering Provider Order Date Source ePHEDrine (ANES) Route: IV, Dr ug form: INJ, ONCE, Stop date: 01/29/16 8:28:00 CDT Inactive 01/29/2016 [facility] propofol (ANES) Route: IV, Leonel g form: INJ, ONCE, Stop date: 01/29/16 8:27:00 CDT Inactive 01/29/2016 [facility] fentaNYL (ANES) Route: IV, Leonel g form: INJ, ONCE, Stop date: 01/29/16 8:27:00 CDT Inactive 01/29/2016 [facility] [place] ondansetron (ANES) Route: IV, Drug form: INJ, ONCE, Stop date: 01/29/16 8:27:00 CDT Inactive 01/29/2016 [facility] lidocaine (ANES) Route: IV, Dr ug form: INJ, ONCE, Stop date: 01/29/16 8:27:00 CDT Inactive 01/29/2016 [facility] [place] Phenazopyridine hydrochloride 100 MG Ora l Tablet [Pyridium] 100 mg = 1 tab, PO, TID, PRN Dysuria, X 2 day, # 6 tab, 0 Refill(s) No Longer Active 01/29/2016 [facility] ciprofloxacin (ANES) Route: IV , Drug form: INJ, ONCE, Stop date: 01/29/16 8:22:00 CDT Inactive 01/29/2016 [facility] midazolam (ANES) Route: IV, Dr ug form: SOLN, ONCE, Stop date: 01/29/16 8:22:00 CDT Inactive 01/29/2016 [facility] LR 1000 mL INJ (ANES) Route: I V, Total Volume: 1,000, Start date: 01/29/16 7:36:00 CDT, Stop date: 01/29/16 8:36:00 CDT Inactive 01/29/2016 [facility] 200 ML Ciprofloxacin 2 MG/ML Injection [Cipro] Notes: Do not refrigerate Inactive 01/29/2016 [facility] [place] Calcium Chloride 0.0014 MEQ/ML / Potassi um Chloride 0.004 MEQ/ML / Sodium Chloride 0.103 MEQ/ML / Sodium Lactate 0.028 MEQ/ML Injectable Solution 1,000 mL, Rate: 25 ml/hr, Infuse over: 4 0 hr, Route: IV, Dosing Weight 102.528 kg, Total Volume: 1,000, Start date: 01/29/16 6:12:00 CDT, Duration: 30 day, Stop date: 02/28/16 6:11:00 CDT Inactive 01/29/2016 [facility] [place] Docusate Sodium 100 MG Oral Capsule [Colace] 100 mg = 1 cap, PO, BID, PRN Constipation, # 20 cap, 0 Refill(s) Active 04/29/2015 [facility] tramadol hydrochloride 50 MG Oral Tablet 50 mg = 1 tab, PO, Q6H, PRN Pain, X 10 day, # 40 tab, 0 Refill(s) Active 04/29/2015 [facility] Oxycodone 5 mg, Route: PO, Leonel g form: TAB, Q4H, Dosing Weight 99.545, kg, PRN Pain Score 4-6, Start date: 04/29/15 9:40:00, Duration: 30 day, Stop date: 05/29/15 9:39:00 Inactive 04/29/2015 [facility] [place] Fentanyl 50 microgram, Route: IVP, Q5Min, Dosing Weight 99.545, kg, PRN Pain Score 7-10, Start date: 04/29/15 9:40:00, Duration: 2 doses or times, Stop date: Limited # of times Inactive 04/29/2015 [facility] Hydromorphone 0.5 mg, Route: I NAIL SPECIALIST, Q5Min, Dosing Weight 99.545, kg, PRN Pain Score 7-10, Start date: 04/29/15 9:40:00, Duration: 4 doses or times, Stop date: Limited # of times Inactive 04/29/2015 [facility] [place] Acetaminophen 1,000 mg, Route: IVPB, Drug form: INJ, ONCE, Dosing Weight 99.545, kg, PRN Pain Score 1-3, Start date: 04/29/15 9:40:00, Duration: 1 doses or times, Stop date: Limited # of times Inactive 04/29/2015 [facility] Meperidine 12.5 mg, Route: IVP , Q30Min, Dosing Weight 99.545, kg, PRN Other -See Comment, For shivering, Start date: 04/29/15 9:40:00, Duration: 2 doses or times, Stop date: Limited # of times Inactive 04/29/2015 [facility] [place] Flumazenil 0.2 mg, Route: IVP, PRN, Dosing Weight 99.545, kg, PRN Benzodiazepine Reversal, Initial dose, Start date: 04/29/15 9:40:00, Duration: 30 day, Stop date: 05/29/15 9:39:00 Inactive 04/29/2015 [facility] [place] Naloxone 0.04 mg, Route: IVP, Q2MIN, Dosing Weight 99.545, kg, PRN Narcotic Reversal, Start date: 04/29/15 9:40:00, Duration: 8 doses or times, Stop date: Limited # of times Inactive 04/29/2015 [facility] Ondansetron 4 mg, Route: IVP, ONCE, Dosing Weight 99.545, kg, PRN Nausea & Vomiting, Start date: 04/29/15 9:40:00 Inactive 04/29/2015 [facility] Ancef 2 gm, Route: IVPB, ONCE, Dosing Weight 99.545, kg, Start date: 04/29/15 9:24:00, Duration: 1 doses or times, Stop date: 04/29/15 9:24:00 Inactive 04/29/2015 [facility] [place] Calcium Chloride 0.0014 MEQ/ML / Potassi um Chloride 0.004 MEQ/ML / Sodium Chloride 0.103 MEQ/ML / Sodium Lactate 0.028 MEQ/ML Injectable Solution 1,000 mL, Rate: 25 ml/hr, Infuse over: 4 0 hr, Route: IV, Dosing Weight 99.545 kg, Total Volume: 1,000, Start date: 04/29/15 8:32:00, Duration: 30 day, Stop date: 05/29/15 8:31:00 Inactive 04/29/2015 [facility] [place] Sodium Chloride 0.9% IV 1000 mL 1,000 mL, Rate: 25 ml/hr, Infuse over: 40 hr, Route: IV, Dosing Weight 97.727 kg, Total Volume: 1,000, Start date: 02/26/13 12:02:00, Duration: 30 day, Stop date: 03/28/13 12:01:00 IV No Longer Active [facility] 02/26/2013 [facility] [place] Gridley 7.5/325 oral tablet 1 ta b, PO, Q4H, PRN, for pain, Substitution Allowed, Maintenance, TAB PO Active 02/25/2013 [facility] [place] LR IV 1,000 mL 1,000 mL, Rate: 40 ml/hr, Infuse over: 25 hr, Route: IV, Total Volume: 1,000, Start date: 09/08/11 8:48:00, Duration: 30 day, Stop date: 10/08/11 8:47:00 IV No Longer Active [facility] 09/08/2011 [facility] ondansetron 4 mg, 2 mL, Route: IVP, Drug form: INJ, ONCE, PRN Nausea & Vomiting, Start date: 09/06/11 9:52:00 IVP No Longer Active [facility] 09/06/2011 [facility] acetaminophen-hydrocodone 325 mg-5 mg oral tablet 2 tab, Route: PO, Drug Form: TAB, Q4H, PRN Pain Score 4-6, Start date: 09/06/11 9:52:00, Duration: 30 day, Stop date: 10/06/11 9:51:00 PO No Longer Active [facility] 09/06/2011 [facility] hydromorphone 0.5 mg, 0.5 mL, Route: IVP, Drug form: SOLN, Q5Min, PRN Pain Score 4-6, Start date: 09/06/11 9:52:00, Duration: 5 doses or times, Stop date: Limited # of times IVP No Longer Active [facility] 09/06/2011 [facility] [place] fentanyl 25 microgram, 0.5 mL, Route: IVP, Drug form: INJ, Q5Min, PRN Pain Score 4-6, Start date: 09/06/11 9:52:00, Duration: 4 doses or times, Stop date: Limited # of times IVP No Longer Active [facility] 09/06/2011 [facility] flumazenil 0.2 mg, 2 mL, Route : IVP, Drug form: INJ, PRN, PRN Other -See Comment, Initial dose, Start date: 09/06/11 9:52:00, Duration: 5 doses or times, Stop date: Limited # of times IVP No Longer Active [facility] 09/06/2011 [facility] [place] meperidine 12.5 mg, 0.25 mL, R oute: IVP, Drug form: INJ, Q30Min, PRN Other -See Comment, For shivering, Start date: 09/06/11 9:52:00, Duration: 2 doses or times, Stop date: Limited # of times IVP No Longer Active [facility] 09/06/2011 [facility] morphine Sulfate 2 mg, 1 mL, R oute: IVP, Drug form: INJ, Q5Min, PRN Pain Score 4-6, Start date: 09/06/11 9:52:00, Duration: 8 doses or times, Stop date: Limited # of times IVP No Longer Active [facility] 09/06/2011 [facility] [place] naloxone 0.04 mg, 0.1 mL, Rout e: IVP, Drug form: INJ, Q2MIN, PRN Narcotic Reversal, Start date: 09/06/11 9:52:00, Duration: 8 doses or times, Stop date: Limited # of times IVP No Longer Active [facility] 09/06/2011 [facility] [place] Gridley 5/325 oral tablet 1-2 ta b, PO, Q4-6H, PRN, 30 tab, Pain, Substitution Allowed, Maintenance PO Active [facility] 09/06/2011 [facility] lidocaine 1% 0.5 mL, Route: APARICIO B-Q, ONCALL, Start date: 09/06/11 9:00:00, Duration: 1 doses or times SUB-Q No Longer Active [facility] 09/06/2011 [facility] Ancef 2 gm, Route: IVPB, ONCE, Start date: 09/06/11 8:27:00, Duration: 1 doses or times, Stop date: 09/06/11 8:27:00 IVPB No Longer Active [facility] 09/06/2011 [facility] [place] Lactated Ringers Injection IV 1,000 mL 1,000 mL, Rate: 25 ml/hr, Infuse over: 40 hr, Route: IV, Total Volume: 1,000, Start date: 09/06/11 8:26:00, Duration: 30 day, Stop date: 10/06/11 8:25:00 IV No Longer Active [facility] 09/06/2011 [facility] [place] amoxicillin 500 mg oral capsule 500 mg, 1 cap, PO, BID, 30 cap, Substitution Allowed, CAP PO Active 09/06/2011 [facility] [place] clarithromycin 500 mg oral tablet 500 mg, 1 tab, PO, Q12H, 20 tab, Substitution Allowed, TAB PO Active 09/06/2011 [facility] multivitamin 1 tab, PO, Daily, Substitution Allowed, Maintenance PO Active 09/06/2011 [facility] Metamucil 2 tabs, PO, TID, Sub stitution Allowed, Maintenance PO Active 09/06/2011 [facility] [place] Niaspan ER 500 mg oral tablet, extended release 500 mg, 1 tab, PO, Bedtime, 90 tab, Substitution Allowed, ERTAB PO Active 09/06/2011 [facility] [place] ropinirole 0.25 mg oral tablet 0.25 mg, 1 tab, PO, Daily, 90 tab, Substitution Allowed, 1 to 3 hours before bedtime, TAB1 to 3 hours before bedtime PO Active 09/06/2011 [facility] [place] ProAir HFA 90 mcg/inh inhalation aerosol with adapter 2 puff, INHALATION, Q4H, PRN, 9 gm, for wheezing, Substitution Allowed, Maintenance, AERO INHALATION Active 09/06/2011 [facility] [place] hydrochlorothiazide 25 mg oral tablet 25 mg, 1 tab, PO, Daily, 30 tab, Substitution Allowed PO Active 09/06/2011 [facility] [place] Bystolic 10 mg oral tablet 10 mg, 1 tab, PO, Daily, 30 tab, Substitution Allowed, TAB PO Active 09/06/2011 [facility] [place] Allergies, Adverse Reactions, Alerts Substance Category Reaction Severity Reaction type Status Date Reported Comments Source iodinated radiocontrast dyes<sup>1</sup> Assertion Swelling, NOS Drug allergy Active 08/31/2011 Data migrated from [employer] on 03/19. Originally documented as CONTRAST DYE. swelling [facility] [place] iodinated radiocontrast dyes A ssertion Drug aller gy Active [facility] [place] Immunizations No Data Provided for This Section Results Order Name Results Value Reference Range Date Interpretation Comments Source ELECTROLYTES AGAP 14.4 10.0 - 20.0 01/22/2016 [facility] [place] ELECTROLYTES eGFR 60 01/22/2016 Result Comment: The eGFR is calculated using the [...] from the National Kidney Disease Education Program (NKDEP) which additionally recommends that when the eGFR is used in patients with extremes of body mass index for purposes of drug dosing, the eGFR should be multiplied by the estimated BMI. [facility] [place] ELECTROLYTES CO2 22 24 - 32 01/22/2016 [facility] ELECTROLYTES Calcium Lvl 8.3 8.5 - 10.5 01/22/2016 [facility] [place] ELECTROLYTES Chloride Lvl 108 95 - 109 01/22/2016 [facility] [place] ELECTROLYTES Sodium Lvl 141 135 - 145 01/22/2016 [facility] [place] ELECTROLYTES Potassium Lvl 3.4 3.5 - 5.1 01/22/2016 [facility] [place] ELECTROLYTES Creatinine Lvl 1.2 1 0.50 - 1.40 01/22/2016 [facility] [place] ELECTROLYTES Glucose Lvl 101 70 - 99 01/22/2016 [facility] [place] ELECTROLYTES BUN 16 7 - 22 01/22/2016 [facility] HEMATOLOGY Basophils # 0.1 0.0 - 0.2 01/22/2016 [facility] Segs-Bands # 4.5 1.5 - 8.1 01/22/2016 [facility] [place] HEMATOLOGY Basophils 0.7 0.0 - 1.0 01/22/2016 [facility] Lymphocytes # 1.7 1.0 - 5.5 01/22/2016 [facility] [place] HEMATOLOGY Monocytes # 0.6 0.0 - 0.8 01/22/2016 [facility] HEMATOLOGY Eosinophils # 0.2 0.0 - 0.5 01/22/2016 [facility] HEMATOLOGY Eosinophils 2.3 0.0 - 4.0 01/22/2016 [facility] HEMATOLOGY Segs 64.7 45.0 - 75.0 01/22/2016 [facility] HEMATOLOGY Monocytes 8.0 2.0 - 12.0 01/22/2016 [facility] Lymphocytes 24.3 20.0 - 40.0 01/22/2016 [facility] RDW 14.5 11.5 - 14.5 01/22/2016 [facility] MPV 7.9 7.4 - 10.4 01/22/2016 [facility] Platelet 245 133 - 450 01/22/2016 [facility] HEMATOLOGY Hgb 13.3 14.0 - 18.0 01/22/2016 [facility] HEMATOLOGY Hct 40.3 42.0 - 54.0 01/22/2016 [facility] HEMATOLOGY RBC 4.33 4.70 - 6.10 01/22/2016 [facility] HEMATOLOGY WBC 6.9 3.7 - 10.4 01/22/2016 [facility] HEMATOLOGY MCV 93.0 80.0 - 94.0 01/22/2016 [facility] HEMATOLOGY MCH 30.8 27.0 - 31.0 01/22/2016 [facility] HEMATOLOGY MCHC 33.1 32.0 - 36.0 01/22/2016 [facility] URINE AND STOOL UA Urobilinogen <=1.0 mg/dL 0.1 - 1.0 01/22/2016 [facility] URINE AND STOOL UA Sq Epi None Seen 01/22/2016 [facility] URINE AND STOOL UA RBC 4 0 - 2 01/22/2016 [facility] URINE AND STOOL UA WBC 25 0 - 5 01/22/2016 [facility] URINE AND STOOL UA Blood Negative (01/22/16 4:31 PM) Negative 01/22/2016 [facility] URINE AND STOOL UA Nitrite Positive *ABN* (01/22/16 4:31 PM) Negative 01/22/2016 [facility] URINE AND STOOL UA Glucose Negative mg/dL Negative mg/dL 01/22/2016 [facility] URINE AND STOOL UA Leuk Est Moderate *ABN* (01/22/16 4:31 PM) Negative 01/22/2016 [facility] URINE AND STOOL UA Protein Negative mg/dL Negative mg/dL 01/22/2016 [facility] URINE AND STOOL UA Ketones Negative mg/dL Negative mg/dL 01/22/2016 [facility] URINE AND STOOL UA Bili Negative *NA* (01/22/16 4:31 PM) Negative 01/22/2016 [facility] URINE AND STOOL UA Turbidity Clear (01/22/16 4:31 PM) Clear 01/22/2016 [facility] URINE AND STOOL UA Spec Grav 1.021 <=1.030 01/22/2016 [facility] URINE AND STOOL UA pH 5.0 5.0 - 8.0 01/22/2016 [facility] URINE AND STOOL UA Color Yellow *NA* (01/22/16 4:31 PM) Yellow 01/22/2016 [facility] ELECTROLYTES AGAP 11.7 10.0 - 20.0 04/24/2015 [facility] ELECTROLYTES A/G Ratio 1.0 0.7 - 1.6 04/24/2015 [facility] ELECTROLYTES Globulin 3.7 2.0 - 4.0 04/24/2015 [facility] ELECTROLYTES B/C Ratio 16 6 - 25 04/24/2015 [facility] ELECTROLYTES Glucose Lvl 101 70 - 99 04/24/2015 [facility] ELECTROLYTES CO2 26 24 - 32 04/24/2015 [facility] ELECTROLYTES ALT 46 0 - 65 04/24/2015 [facility] ELECTROLYTES Albumin Lvl 3.7 3.5 - 5.0 04/24/2015 [facility] ELECTROLYTES eGFR 68 04/24/2015 Result Comment: The eGFR is calculated using the [...] from the National Kidney Disease Education Program (NKDEP) which additionally recommends that when the eGFR is used in patients with extremes of body mass index for purposes of drug dosing, the eGFR should be multiplied by the estimated BMI. [facility] ELECTROLYTES Bili Total 0.4 0.2 - 1.3 04/24/2015 [facility] ELECTROLYTES Creatinine Lvl 1.1 0.5 - 1.4 04/24/2015 [facility] ELECTROLYTES Sodium Lvl 140 135 - 145 04/24/2015 [facility] ELECTROLYTES Potassium Lvl 3.7 3.5 - 5.1 04/24/2015 [facility] ELECTROLYTES Chloride Lvl 106 95 - 109 04/24/2015 [facility] ELECTROLYTES Total Protein 7.4 6.4 - 8.4 04/24/2015 [facility] ELECTROLYTES AST 25 0 - 37 04/24/2015 [facility] ELECTROLYTES Alk Phos 117 39 - 136 04/24/2015 [facility] ELECTROLYTES Calcium Lvl 8.6 8.5 - 10.5 04/24/2015 [facility] ELECTROLYTES BUN 18 7 - 22 04/24/2015 [facility] HEMATOLOGY MCV 93.3 80.0 - 94.0 04/24/2015 [facility] MCH 30.6 27.0 - 31.0 04/24/2015 [facility] MCHC 32.9 32.0 - 36.0 04/24/2015 [facility] Platelet 231 133 - 450 04/24/2015 [facility] RDW 14.6 11.5 - 14.5 04/24/2015 [facility] MPV 8.0 7.4 - 10.4 04/24/2015 [facility] WBC 6.8 3.7 - 10.4 04/24/2015 [facility] RBC 4.31 4.70 - 6.10 04/24/2015 [facility] Hgb 13.2 14.0 - 18.0 04/24/2015 [facility] Hct 40.2 42.0 - 54.0 04/24/2015 [facility] Basophils 0.5 0.0 - 1.0 04/24/2015 [facility] HEMATOLOGY Segs-Bands # 4.5 1.5 - 8.1 04/24/2015 [facility] HEMATOLOGY Lymphocytes 22.3 20.0 - 40.0 04/24/2015 [facility] HEMATOLOGY Eosinophils 1.2 0.0 - 4.0 04/24/2015 [facility] HEMATOLOGY Segs 66.5 45.0 - 75.0 04/24/2015 [facility] HEMATOLOGY Monocytes 9.5 2.0 - 12.0 04/24/2015 [facility] Monocytes # 0.6 0.0 - 0.8 04/24/2015 [facility] Lymphocytes # 1.5 1.0 - 5.5 04/24/2015 [facility] HEMATOLOGY Eosinophils # 0.1 0.0 - 0.5 04/24/2015 [facility] CHEMISTRY B/C Ratio 23 6 - 25 03/26/2013 Normal [facility] CHEMISTRY Globulin 2.8 2.0 - 4.0 03/26/2013 Normal [facility] CHEMISTRY A/G Ratio 1.4 0.7 - 1.6 03/26/2013 Normal [facility] CHEMISTRY AGAP 16.3 10.0 - 20.0 03/26/2013 Normal [facility] CHEMISTRY eGFR 69 03/26/2013 NA <sup>1</sup>Result Comment: The eGFR is calculated using the CKD-EPI formula. In most young, healthy individuals the eGFR will be >90 mL/min/1.73m2. The eGFR declines with age. An eGFR of 60-89 may be normal in some populations, particularly the elderly, for whom the CKD-EPI formula has not been extensively validated. Use of the eGFR is not recommended in the following populations:& lt;br/>
Individuals with unstable creatinine concentrations, including patients and those with serious co-morbid conditions.

Patients with extremes in muscle mass or diet.

The data above are obtained from the National Kidney Disease Education Program (NKDEP) which additionally recommends that when the eGFR is used in patients with extremes of body mass index for purposes of drug dosing, the eGFR should be multiplied by the estimated BMI. [facility] CHEMISTRY Total Protein 6.8 6.4 - 8.4 03/26/2013 Normal [facility] CHEMISTRY Albumin Lvl 4.0 3.5 - 5.0 03/26/2013 Normal [facility] CHEMISTRY ALT 34 0 - 65 03/26/2013 Normal [facility] CHEMISTRY CO2 24 24 - 32 03/26/2013 Normal [facility] [place] CHEMISTRY Calcium Lvl 8.9 8.5 - 10.5 03/26/2013 Normal [facility] [place] CHEMISTRY Alk Phos 114 39 - 136 03/26/2013 Normal [facility] [place] CHEMISTRY Bili Total 0.7 0.2 - 1.3 03/26/2013 Normal [facility] [place] CHEMISTRY AST 24 0 - 37 03/26/2013 Normal [facility] [place] CHEMISTRY Creatinine Lvl 1.1 0.5 - 1.4 03/26/2013 Normal [facility] [place] CHEMISTRY BUN 25 7 - 22 03/26/2013 HI [facility] [place] CHEMISTRY Glucose Lvl 143 70 - 99 03/26/2013 HI <sup>2</sup>Interpretive Data: Adult ref erence range values reflect the clinical guidelines
of the [employer]. [facility] [place] CHEMISTRY Potassium Lvl 4.3 3.5 - 5.1 03/26/2013 Normal [facility] [place] CHEMISTRY Chloride Lvl 105 95 - 109 03/26/2013 Normal [facility] [place] CHEMISTRY Sodium Lvl 141 135 - 145 03/26/2013 Normal [facility] [place] HEMATOLOGY Lymphocytes # 0.8 1.0 - 5.5 03/26/2013 LOW [facility] [place] HEMATOLOGY Basophils # 0.0 0.0 - 0.2 03/26/2013 Normal [facility] [place] HEMATOLOGY Monocytes # 0.0 0.0 - 0.8 03/26/2013 Normal [facility] [place] HEMATOLOGY Eosinophils # 0.2 0.0 - 0.5 03/26/2013 Normal [facility] [place] HEMATOLOGY Segs-Bands # 1.9 1.5 - 8.1 03/26/2013 Normal [facility] [place] HEMATOLOGY Basophils 0.4 0.0 - 1.0 03/26/2013 Normal [facility] [place] HEMATOLOGY Eosinophils 6.9 0.0 - 4.0 03/26/2013 [facility] HEMATOLOGY Segs 63.2 45.0 - 75.0 03/26/2013 Normal [facility] [place] HEMATOLOGY Lymphocytes 28.1 20.0 - 40.0 03/26/2013 Normal [facility] [place] HEMATOLOGY Monocytes 1.4 2.0 - 12.0 03/26/2013 LOW [facility] [place] HEMATOLOGY RDW 16.7 11.5 - 14.5 03/26/2013 [facility] HEMATOLOGY MPV 8.8 7.4 - 10.4 03/26/2013 Normal [facility] [place] HEMATOLOGY Platelet 228 133 - 450 03/26/2013 Normal [facility] [place] HEMATOLOGY Hgb 11.9 14.0 - 18.0 03/26/2013 LOW [facility] [place] HEMATOLOGY Hct 35.9 42.0 - 54.0 03/26/2013 LOW [facility] [place] HEMATOLOGY MCV 93.3 80.0 - 94.0 03/26/2013 Normal [facility] [place] HEMATOLOGY MCH 30.8 27.0 - 31.0 03/26/2013 Normal [facility] [place] HEMATOLOGY MCHC 33.0 32.0 - 36.0 03/26/2013 Normal [facility] [place] HEMATOLOGY WBC 3.0 3.7 - 10.4 03/26/2013 LOW [facility] [place] HEMATOLOGY RBC 3.85 4.70 - 6.10 03/26/2013 LOW [facility] [place] TUMOR MARKERS CEA 5.1 0.0 - 3.0 03/26/2013 [facility] CHEMISTRY A/G Ratio 1.3 0.7 - 1.6 02/25/2013 Normal [facility] [place] CHEMISTRY AGAP 12.9 10.0 - 20.0 02/25/2013 Normal [facility] [place] CHEMISTRY Globulin 2.8 2.0 - 4.0 02/25/2013 Normal [facility] [place] CHEMISTRY B/C Ratio 18 6 - 25 02/25/2013 Normal [facility] [place] CHEMISTRY Potassium Lvl 3.9 3.5 - 5.1 02/25/2013 Normal [facility] [place] CHEMISTRY Chloride Lvl 107 95 - 109 02/25/2013 Normal [facility] [place] CHEMISTRY Sodium Lvl 141 135 - 145 02/25/2013 Normal [facility] [place] CHEMISTRY eGFR 62 02/25/2013 NA <sup>1</sup>Result Comment: The eGFR is calculated using the CKD-EPI formula. In most young, healthy individuals the eGFR will be >90 mL/min/1.73m2. The eGFR declines with age. An eGFR of 60-89 may be normal in some populations, particularly the elderly, for whom the CKD-EPI formula has not been extensively validated. Use of the eGFR is not recommended in the following populations:& lt;br/>
Individuals with unstable creatinine concentrations, including patients and those with serious co-morbid conditions.

Patients with extremes in muscle mass or diet.

The data above are obtained from the National Kidney Disease Education Program (NKDEP) which additionally recommends that when the eGFR is used in patients with extremes of body mass index for purposes of drug dosing, the eGFR should be multiplied by the estimated BMI. [facility] [place] CHEMISTRY AST 18 0 - 37 02/25/2013 Normal [facility] [place] CHEMISTRY Bili Total 0.5 0.2 - 1.3 02/25/2013 Normal [facility] [place] CHEMISTRY ALT 32 0 - 65 02/25/2013 Normal [facility] [place] CHEMISTRY Albumin Lvl 3.7 3.5 - 5.0 02/25/2013 Normal [facility] [place] CHEMISTRY Alk Phos 109 39 - 136 02/25/2013 Normal [facility] [place] CHEMISTRY CO2 25 24 - 32 02/25/2013 Normal [facility] [place] CHEMISTRY Creatinine Lvl 1.2 0.5 - 1.4 02/25/2013 Normal [facility] [place] CHEMISTRY Total Protein 6.5 6.4 - 8.4 02/25/2013 Normal [facility] [place] CHEMISTRY Calcium Lvl 8.4 8.5 - 10.5 02/25/2013 LOW [facility] [place] CHEMISTRY BUN 22 7 - 22 02/25/2013 Normal [facility] [place] CHEMISTRY Glucose Lvl 117 70 - 99 02/25/2013 HI <sup>2</sup>Interpretive Data: Adult ref erence range values reflect the clinical guidelines
of the [employer]. [facility] [place] HEMATOLOGY RBC Morph Carina l (02/25/2013 16:58:00) 02/25/2013 Normal [facility] [place] HEMATOLOGY Basophils # 0.0 0.0 - 0.2 02/25/2013 Normal [facility] [place] HEMATOLOGY Lymphocytes # 0.8 1.0 - 5.5 02/25/2013 [facility] HEMATOLOGY Segs-Bands # 0.4 1.5 - 8.1 02/25/2013 [facility] HEMATOLOGY Basophils 0.6 0.0 - 1.0 02/25/2013 Normal [facility] [place] HEMATOLOGY Eosinophils # 0.0 0.0 - 0.5 02/25/2013 Normal [facility] [place] HEMATOLOGY Monocytes # 0.8 0.0 - 0.8 02/25/2013 [facility] HEMATOLOGY Segs 19.3 45.0 - 75.0 02/25/2013 [facility] HEMATOLOGY Plt Morph Carina l (02/25/2013 16:58:00) 02/25/2013 Normal [facility] [place] HEMATOLOGY Eosinophils 0.1 0.0 - 4.0 02/25/2013 [facility] HEMATOLOGY Monocytes 39.0 2.0 - 12.0 02/25/2013 [facility] HEMATOLOGY Lymphocytes 41.0 20.0 - 40.0 02/25/2013 [facility] HEMATOLOGY MCHC 32.8 32.0 - 36.0 02/25/2013 [facility] HEMATOLOGY MCH 30.3 27.0 - 31.0 02/25/2013 [facility] HEMATOLOGY MCV 92.3 80.0 - 94.0 02/25/2013 [facility] HEMATOLOGY Hct 33.3 42.0 - 54.0 02/25/2013 [facility] HEMATOLOGY Hgb 10.9 14.0 - 18.0 02/25/2013 [facility] HEMATOLOGY WBC 2.0 3.7 - 10.4 02/25/2013 [facility] HEMATOLOGY RBC 3.61 4.70 - 6.10 02/25/2013 [facility] HEMATOLOGY MPV 8.0 7.4 - 10.4 02/25/2013 [facility] HEMATOLOGY Platelet 394 133 - 450 02/25/2013 [facility] HEMATOLOGY RDW 14.7 11.5 - 14.5 02/25/2013 [facility] TUMOR MARKERS CEA 6.0 0.0 - 3.0 02/25/2013 [facility] CHEMISTRY Sodium Lvl 141 135 - 145 09/06/2011 [facility] CHEMISTRY Potassium Lvl 4.5 3.5 - 5.1 09/06/2011 [facility] CHEMISTRY AGAP 14.5 10.0 - 20.0 09/06/2011 [facility] CHEMISTRY CO2 26 24 - 32 09/06/2011 [facility] CHEMISTRY Chloride Lvl 105 95 - 109 09/06/2011 Normal [facility] Pathology Reports No Data Provided for This Section Diagnostic Reports Report Value Date Source Chest/Abdomen/Pelvis w IV contrast CT Chest/Abdomen/Pelvis w IV contrast CT CLINICAL HX: ct dlp dose 2315 mgycm 75cc visi iv - gastric ca, 5 year follow up. COMPARISON: none TECHNIQUE: Contiguous transaxial images of the chest, abdomen and pelvis were performed with IV contrast. Reformats are available in sagittal and coronal projections. NOTE: Oral contrast was not administered. This limits evaluation of bowel. CT CHEST: SUPPORT DEVICES: none LOWER NECK: Symmetric appearance of thyroid gland without focal abnormality. LUNGS AND AIRWAYS: Mild bibasilar scarring. The lungs and pleural spaces are otherwise clear. The trachea and the proximal bronchi are patent. CARDIOVASCULAR: Mild cardiomegaly. Coronary artery calcifications. The aorta demonstrates normal morphology. No evidence for dissection or aneurysm. LYMPH NODES: No significant mediastinal or hilar lymphadenopathy. BONE AND SOFT TISSUE: No significant bony abnormality is noted. ESOPHAGUS: The esophagus demonstrates normal morphology. CT ABDOMEN: ABDOMINAL VISCERA: Fatty infiltration of liver. Hepatomegaly. Vague enhancing focus, right lobe of liver peripherally, unchanged. Spleen, pancreas and both adrenal glands are unremarkable in appearance. Gallbladder demonstrates normal morphology. GI TRACT: Postoperative changes related to gastrectomy are noted. No residual mass or lymphadenopathy is noted. Mild nonspecific thickening of the wall of the distal sigmoid and rectum. These changes may be related to underdistention. Correlation with other clinical data is recommended to assess for possible proctitis. There is no evidence for free fluid or free air in the abdomen. TRACT: The kidneys demonstrate normal morphology and symmetric excretion. 2 mm nonobstructing calyceal calculus, upper pole of left kidney. LYMPH NODES: No significant retroperitoneal lymphadenopathy is noted. VASCULATURE: Aorta demonstrates normal morphology. BONE AND SOFT TISSUES: No significant bony abnormality is noted. CT PELVIS: Mild bladder wall thickening.. Moderate enlargement of prostate gland. No free fluid is present in the pelvis. IMPRESSION: Stable examination. Status post gastrectomy. No evidence to suggest residual or recurrent mass/lymphadenopathy. No new liver lesion is visualized. Mild nonspecific thickening of the wall of the distal sigmoid colon and rectum. Correlate clinically for signs of proctitis. Enlarged prostate. Bladder wall thickening. Findings concerning for chronic bladder outlet obstruction. SL: [id number] 01/07/2017 [facility] [place] Abdomen AP DX Study: Abdomen A P DX Age: 70 years y/o Male Clinical Indication: N21.0 Calculus in bladder; Comparison: None FINDINGS: The AP supine view of the abdomen shows a non-obstructive bowel gas pattern.. There is no abnormal dilatation of bowel loops. There is no pneumatosis or mass effect. There is a small crescent-shaped calcification overlying the lower pole of left kidney which measures approximately 4.3 mm in length. In the midline pelvis there is an irregular calculus measuring 14 x 19 mm in cross-section which may represent a bladder calculus. There are no clinically significant osseous abnormalities noted. IMPRESSION: 1. Tiny crescent shaped calculus or vasc ular calcification overlying the lower pole of left kidney which measures 4.3 mm in length. 2. Large irregular calculus in the midli ne pelvis suspicious for bladder stone. : [id number] 12/11/2015 [facility] [place] Chest/Abd/Pelvis w/wo IV contrast CT HISTORY: E gastric carcinoma follow-up. CT chest abdomen and pelvis with IV and oral contrast. Comparison 01/11/2014 CT abdomen and pelvis. PET/CT 08/17/2013. Chest CT: There is no nodule mass or infiltrate. No mediastinal or hilar mass or adenopathy. No pleural or pericardial effusion. MediPort right chest wall with the catheter in the SVC. No aortic aneurysm or dissection. Abdomen and pelvis CT: Liver, spleen, pancreas, adrenal glands and kidneys demonstrate no acute finding. 8mm enhancing nodule in the subcapsular right hepatic lobe was present, in retrospect, on studies dating back to 05/02/2012 and appears stable. Incidental hemangiomas most likely. No other hepatic lesion. There are 2 punctate nonobstructive renal calculi within the left kidney. A 2 cm urinary bladder calculus is present. Urinary bladder wall is diffusely mildly thickened. The prostate gland is quite enlarged. Previous gastrectomy. No recurrent upper abdominal soft tissue mass or adenopathy is noted. There is no other pelvic mass adenopathy or fluid collection. Degenerative changes and Schmorl's node deformities noted within the thoracic and lumbar spine. No significant bony lesions are appreciated. IMPRESSION: No new abnormality within the chest. Status post gastrectomy. No evidence for residual or recurrent mass or adenopathy. No new liver lesion appreciated. 2 cm urinary bladder calculus. Few small nonobstructive left renal calculi. Large prostate. Diffusely thickened urinary bladder wall could be secondary to chronic bladder outlet obstruction. SL:13 11/01/2014 [facility] [place] Abdomen/Pelvis w/wo IV contrast CT CT ABDOMEN PELVIS PRE- AND POST CONTRAST: TECHNIQUE: Helical images were done before and after intravenous contrast. Oral contrast was administered. FINDINGS: Gastrectomy with esophagojejunostomy is noted. There has been interval resolution of the postsurgical changes since the previous CT on 03/02/2012. The jejunostomy tube has been removed. The remainder of the GI tract is unremarkable. No evidence of recurrent local mass is seen in the left upper quadrant. There is no significant lymph node enlargement seen in the upper abdomen or retroperitoneum. The liver shows no focal abnormalities. The spleen, pancreas, kidneys and adrenal glands show significant abnormalities. The gallbladder is unremarkable. The prostate is markedly enlarged. There is thickening of the bladder wall. A 1.6 cm bladder calculus is again. IMPRESSION: 1. Status post gastrectomy for gastric c arcinoma. 2. No evidence of metastatic disease in the abdomen or pelvis. 3. No other acute CT abnormalities in [facility] abdomen or pelvis. SL:13 01/11/2014 [facility] [place] Consultation Notes No Data Provided for This Section Discharge Summaries No Data Provided for This Section History and Physicals No Data Provided for This Section Vital Signs Vital Sign Value Date Comments Source Systolic (mm Hg) 113 01/29/2016 [facility] [place] Diastolic (mm Hg) 77 01/29/2016 [facility] [place] Systolic (mm Hg) 108 01/29/2016 [facility] [place] Diastolic (mm Hg) 60 01/29/2016 [facility] [place] Systolic (mm Hg) 126 01/29/2016 [facility] [place] Diastolic (mm Hg) 69 01/29/2016 [facility] [place] Respitory Rate 19 01/29/2016 [facility] [place] Respitory Rate 12 01/29/2016 [facility] [place] Respitory Rate 10 01/29/2016 [facility] [place] Weight 102.528 01/22/2016 [facility] [place] BMI Calculated 34.37 01/22/2016 [facility] [place] Height 172.72 cm 01/22/2016 [facility] [place] Temperature Oral (F) 97.7 F 01/22/2016 [facility] [place] Heart Rate 70 01/22/2016 [facility] [place] Systolic (mm Hg) 139 04/29/2015 [facility] [place] Diastolic (mm Hg) 78 04/29/2015 [facility] [place] Systolic (mm Hg) 128 04/29/2015 [facility] [place] Diastolic (mm Hg) 68 04/29/2015 [facility] [place] Systolic (mm Hg) 121 04/29/2015 [facility] Diastolic (mm Hg) 53 04/29/2015 [facility] Respitory Rate 15 04/29/2015 [facility] Respitory Rate 16 04/29/2015 [facility] Respitory Rate 14 04/29/2015 [facility] Temperature Oral (F) 98.0 F 04/24/2015 [facility] Heart Rate 80 04/24/2015 [facility] Weight 99.545 04/24/2015 [facility] Height 172.72 cm 04/24/2015 [facility] BMI Calculated 33.37 04/24/2015 [facility] Diastolic (mm Hg) 60 02/26/2013 [facility] Systolic (mm Hg) 106 02/26/2013 [facility] Heart Rate 60 02/26/2013 [facility] Respitory Rate 16 02/26/2013 [facility] Systolic (mm Hg) 117 02/26/2013 [facility] Diastolic (mm Hg) 69 02/26/2013 [facility] Respitory Rate 18 02/26/2013 [facility] Heart Rate 59 02/26/2013 [facility] Heart Rate 64 02/26/2013 [facility] Respitory Rate 18 02/26/2013 [facility] Diastolic (mm Hg) 63 02/26/2013 [facility] Systolic (mm Hg) 98 02/26/2013 [facility] Height 172.72 cm 02/26/2013 [facility] Weight 97.727 02/26/2013 [facility] [place] Temperature Oral (F) 98 F 02/25/2013 [facility] Weight 97.727 02/25/2013 [facility] Height 172.72 cm 02/25/2013 [facility] Diastolic (mm Hg) 50 09/08/2011 [facility] Systolic (mm Hg) 109 09/08/2011 [facility] Respitory Rate 18 09/08/2011 [facility] Heart Rate 88 09/08/2011 [facility] Systolic (mm Hg) 86 09/08/2011 [facility] Diastolic (mm Hg) 44 09/08/2011 [facility] Respitory Rate 18 09/08/2011 [facility] Heart Rate 78 09/08/2011 [facility] Diastolic (mm Hg) 44 09/08/2011 [facility] Systolic (mm Hg) 81 09/08/2011 [facility] Respitory Rate 18 09/08/2011 [facility] Heart Rate 75 09/08/2011 [facility] Weight 107.273 09/07/2011 [facility] Height 172.72 cm 09/07/2011 [facility] Diastolic (mm Hg) 79 09/06/2011 [facility] Systolic (mm Hg) 111 09/06/2011 [facility] [place] Diastolic (mm Hg) 68 09/06/2011 [facility] [place] Systolic (mm Hg) 101 09/06/2011 [facility] [place] Respitory Rate 12 09/06/2011 [facility] [place] Systolic (mm Hg) 95 09/06/2011 [facility] [place] Diastolic (mm Hg) 72 09/06/2011 [facility] [place] Respitory Rate 13 09/06/2011 [facility] [place] Respitory Rate 14 09/06/2011 [facility] [place] Heart Rate 65 09/06/2011 [facility] [place] Weight 106.818 09/06/2011 [facility] [place] Height 172.72 cm 09/06/2011 [facility] [place] Heart Rate 82 09/06/2011 [facility] [place] Temperature Oral (F) 97.6 F 09/06/2011 [facility] [place] Encounters Location Location Details Encounter Type Encounter Number Reason For Visit Attending Provider ADM Date DC Date Status Source [facility] [place] Outpatient [id number] COUGH, 786.2 ALONZO ALLOJU 08/12/2011 [facility] [place] Outpatient [id number] ANEMIA ALONZO ALLOJU 08/17/2011 Active [facility] Outpatient [id number] ESOPHAGEAL CANCER [facility] 09/01/2011 [facility] [place] DS [id number] [place] 09/06/2011 09/06/2011 Discharged [facility] [place] [id number] GASTRIC CA 151.9/ 787.20. GLORIA BANKI 09/08/2011 09/08/2011 Active [facility] Outpatient [id number] LEG PAIN/SWELLING , DYSPNEA [facility] 10/13/2011 Active [facility] Outpatient [id number] 151.3. [facility] RYAN 02/25/2013 Active [facility] [place] [id number] VASQUEZ INAMDAR 02/26/2013 02/26/2013 Discharged [facility] Outpatient [id number] LABS [facility] 03/26/2013 Active [id number]10[facility]2014 01/11/2014 [facility] Outpatient [id number] [facility] Ryan 11/01/2014 11/02/2014 [facility] [place] Outpatient [id number] BO LE 04/14/2015 Active [facility] Outpatient [id number] BO LE 04/29/[address] [facility] OBS Day Surgery [id number] iVnh Le 0 04/29/2015 04/29/2015 [facility] Outpatient [id number] Jimmie Vemana 12/11/2015 12/12/2015 [facility] OBS Day Surgery [id number] Jimmie Vemana 01/29/2016 01/29/2016 [facility] Outpatient [id number] Candido Fajardom 01/07/2017 01/08/2017 [facility] Outpatient [id number] EG JUNCTION, ELIEZER VICKIE MASS... PT HAS IODINE ALLERGY AARON RAYMUNDO Active [facility] LB [id number] BLOOD WORK EVERY WEEK SAHBA RYAN Cancel [facility] [place] [id number] UNK VASQUEZ RAYMUNDO Active [facility] [place] Procedures Procedure Code Date Perfomer Comments Source Colonoscopy [id number] [facility] Complete gastrectomy [id number] [facility] [place] Esophagogastroduodenoscopy [phone] [id number] [facility] [place] Gastrectomy [id number] [facility] Operation<sup>1</sup> [id number] foot and neck surgeries [facility] [place] Operation<sup>2</sup> [id number] port-a- cath placement [facility] [place] Operation<sup>3</sup> [id number] stomach remove due to cancer [facility] [place] Colonoscopy [id number] [facility] Esophagogastroduodenoscopy [phone] [id number] [facility] [place] Operation <sup>1</sup> [id number] 1port-a- c ath placement [facility] [place] Operation <sup>2</sup> [id number] 2stomach r emove due to cancer [facility] [place] Operation <sup>3</sup> [id number] 3foot and neck surgeries [facility] [place] Assessment and Plan No Data Provided for This Section Plan of Care No Data Provided for This Section Social History Social History Date Source Social History TypeResponse Alcohol Past Smoking Status Never smoker; Exposure to Tobacco Smoke None; Cigarette Smoking Last 365 Days No; Reg Smoking Cessation Counseling No 01/22/2016 [facility] [place] Family History No Data Provided for This Section Advance Directives No Data Provided for This Section Functional Status No Data Provided for This Section
--- OUTSIDE RECORDS SUMMARY | 2019-12-31 20:19 | XMS REPORT ---
Author Author [facility] Organization [facility] Address Unknown Phone Unavailable Care Team Providers Care Door Patcher Name Role Phone ALONZO MALDONADO Unavailable Unavailable Payers Payer Name Policy Type Policy Number Effective Date Expiration D ate Problems This patient has no known problems. Allergies, Adverse Reactions, Alerts Allergy Name Allergy Type Status Severity Reaction(s) Onset Date Inacti ve Date Treating Clinician Comments IV CONTRAST DA Active SV 2019-01-31 00:00:00 Medications This patient has no known medications. Results Test Description Test Time Test Comments Text Results Atomic Results Result Comments PROSTATE, TUR 2019-02-08 15:58:00 RUN DATE: 02/08/19 [place] - Lab PAGE 1 RUN TIME: 1558 Specimen Inquiry RUN USER: INTERFACE PATIENT: MINISTERIO CARDOZO LOC: JEFF U #: [id number] AGE/SX: 73/M ROOM: [facility] RE02/07/19REG DR: Carlos Enrique Dumont MD : 43 BED: A DIS: 02/08/19 STATUS: DIS [place]raine TLOC: SPEC #: [id number] RECD: 02/07/19 STATUS: GURVINDER REQ #: [id number] ANGELO: 02/07/[address] [facility] DR: Carlos Enrique Dumont MD ENTERED: 02/07/19 SP TYPE: PROSTATE, OTHR DR: ORDERED: GROSS MARKERS: INTRADEPARTMENTAL CONSULT PROCEDURES: GROSS (02/08/19-140) TISSUES: PROSTATE, NOS - CHIPS CLINICAL HISTORY COLLECTION DATE: 02/07/19 BPH, BLADDER STONE COMMENT Intradepartmental consultation: RRB. FINAL DIAGNOSIS Prostate chips, transurethral resection of prostate: NODULAR HYPERPLASIA NEGATIVE FOR MALIGNANCY DMW/sm D 95168 MACROSCOPIC The specimen is received in formalin, labeled with the patient's name, and identified as "prostate chips". It consists of irregular fragments of umana-pink rubbery tissue measuring 10.0 X 9.0 X up to 2.5 cm, weighing 43.5 grams. Small nodular areas are present in many of the chips. The tissue is entirely submitted (1A-1CC). GROSS PERFORMED AT [facility] [address] [place] [address], [place] [address] [phone] CONTINUED ON NEXT PAGE RUN DATE: 02/08/19 [place] - Lab PAGE 2 RUN TIME: 1558 Specimen Inquiry RUN USER: INTERFACE SPEC #: [id number] PATIENT: CASMINISTERIO ANA LAURAALLA #[id number] ([facility]) MICROSCOPIC All of the stains, including any controls performed, stain appropriately. MICROSCOPIC PERFORMED AT [facility] [address] [place], [place] [id number] [phone] PERFORMING SITE Diagnosis performed at: [facility] [address] [place], [place] [address] Signed SIGNATURE ON FILE Nataliia Dewitt MD 02/08/19 1558 END OF REPORT HIP RIGHT 2-3 VW (+/- PELVIS) 2019-02-01 15:29:00 [place] [address] Patient Name: MINISTERIO CARDOZO MR #: [id number] : 1945 Age/Sex: 73/M Req #: [id number] Adm Physician: Ordered by: ALONZO MALDONADO MD Report #: [id number] Location: [facility] Room/Bed: Procedure: [id number] DX/HIP RIGHT 2-3 VW (+/- PELVIS) Exam Date: Exam Time: REPORT STATUS: Signed Exam: AP pelvis and right hip History: Pain Comparison: None. Findings: No fracture or malalignment. Minimal joint space narrowing without osteophytosis. Cyst in the right femoral neck. No abnormal soft tissue calcification or soft tissue defect. Impression: No acute osseous abnormality Signed by: Dr. Amaury Minor M.D. on 02/01/2019 3:30 PM Dictated By: AMAURY MINOR MD 29 Transcribed By: JOYA on 02/01/191529 COPY TO: ALONZO MALDONADO MD COMPREHENSIVE METABOLIC PANEL 2019-01-31 11:44:00 SODIUM (test code = NA) 149 mmol/L 136-145 POTASSIUM (test code = K) 4.3 mmol/L 3.5-5.1 CHLORIDE (test code = CL) 116.0 mmol/L 98-107 CARBON DIOXIDE (test code = CO2) 23.0 mmol/L 21-32 ANION GAP (test code = GAP) 14.3 10-20 GLUCOSE (test code = GLU) 100 mg/dL 74-106 BLOOD UREA NITROGEN (test code = BUN) 18 mg/dL 7-18 GLOMERULAR FILTRATION RATE (test code = GFR) 59 mL/min >=6 0 Estimated GFR by using Modified MDRD formula.Chronic kidney disease is defined as either kidney damageor GFR <60 mL/min/1.73 m2 for >3 months. CREATININE (test code = CREAT) 1.20 mg/dL 0.7-1.3 BUN/CREATININE RATIO (test code = BUN/CREA) 15.0 10-2 0 TOTAL PROTEIN (test code = PROT) 7.0 gram/dL 6.4-8.2 ALBUMIN (test code = ALB) 3.6 g/dL 3.4-5.0 GLOBULIN (test code = GLOB) 3.4 gram/dL 2.7-4.2 ALBUMIN/GLOBULIN RATIO (test code = A/G) 1.1 0.75-1. 50 CALCIUM (test code = CA) 8.9 mg/dL 8.5-10.1 BILIRUBIN TOTAL (test code = BILT) 0.90 mg/dL 0.0-1.0 SGOT/AST (test code = AST) 51 IUnit/L 15-37 SGPT/ALT (test code = ALT) 75 IUnit/L 12-78 ALKALINE PHOSPHATASE TOTAL (test code = ALKP) 110 IUnit/L 45 -117 Note change in reference range due to change in reagent. COMPREHENSIVE METABOLIC [id number] 11:40:00* Test Item Value Reference Range Comments SODIUM (test code = NA) 149 mmol/L 136-145 POTASSIUM (test code = K) 4.3 mmol/L 3.5-5.1 CHLORIDE (test code = CL) 116.0 mmol/L 98-107 CARBON DIOXIDE (test code = CO2) mmol/L 21-32 ANION GAP (test code = GAP) 10-20 GLUCOSE (test code = GLU) mg/dL 74-106 BLOOD UREA NITROGEN (test code = BUN) mg/dL 7-18 GLOMERULAR FILTRATION RATE (test code = GFR) mL/min >=6 0 CREATININE (test code = CREAT) mg/dL 0.7-1.3 BUN/CREATININE RATIO (test code = BUN/CREA) 10-2 0 TOTAL PROTEIN (test code = PROT) gram/dL 6.4-8.2 ALBUMIN (test code = ALB) g/dL 3.4-5.0 GLOBULIN (test code = GLOB) gram/dL 2.7-4.2 ALBUMIN/GLOBULIN RATIO (test code = A/G) 0.75-1. 50 CALCIUM (test code = CA) mg/dL 8.5-10.1 BILIRUBIN TOTAL (test code = BILT) mg/dL 0.0-1.0 SGOT/AST (test code = AST) IUnit/L 15-37 SGPT/ALT (test code = ALT) IUnit/L 12-78 ALKALINE PHOSPHATASE TOTAL (test code = ALKP) IUnit/L 45 -117 - XR CHEST 2 [id number] 11:23:00 FAX: Carlos Enrique Pandey MD [phone] [place]: O St: PRE Name: MINISTERIO BARTON [facility] : [birth year] Age/S: 73/M [address] [facility] Unit #: [id number] Loc: [place] [address] Phys: Carlos Enrique Dumont MD Acct: [id number] Dis Date: Status: PRE SDC PHONE #: [phone] Exam Date: 01/31/2019 1048 FAX #: [phone] Reason: PRE OP EXAMS: CPT CODE: [id number] XR CHEST 2 V 70904 HISTORY: Preop. COMP ARISON: None available. No acute infiltrates, effusion or congesti on. Dependent changes. Cardiomegaly. DJD of the dorsal spine. Cervical fus ion in the lower neck. IMPRESSION: No ac little shell tribe infiltrates, effusion or congestion. at 1123 Reported and sarita d by: Yury Nguyen M.D. CC: Carlos Enrique Dumont M.D. Technologist: RT Anni(Charles) Trnscrd Date/Time/By: 01/31/2019 (1123) : By: [email or web address] Orig Print D/T: S: 01/31/2019 (8365) PAGE 1 Signed Report CBC W/AUTO DIFF 2019-01-31 10:48:00* Test Item Value Reference Range Comments WHITE BLOOD CELL (test code = WBC) 7.7 K/mm3 4.5-12.5 RED BLOOD CELL (test code = RBC) 4.60 mill/mm3 4.0-5.8 HEMOGLOBIN (test code = HGB) 14.1 gram/dL 13.0-17.5 HEMATOCRIT (test code = HCT) 43.8 % 42.0-52.0 MEAN CELL VOLUME (test code = MCV) 95.2 fL 80-98 MEAN CELL HGB (test code = MCH) 30.7 picogram 27.0-33.0 MEAN CELL HGB CONCETRATION (test code = MCHC) 32.2 gram/dL 33 .0-36.0 RED CELL DISTRIBUTION WIDTH (test code = RDW) 14.0 % 11 .6-16.2 RED CELL DISTRIBUTION WIDTH SD (test code = RDW-SD) 48.9 fL 37.0-51.0 PLATELET COUNT (test code = PLT) 250 K/mm3 150-450 MEAN PLATELET VOLUME (test code = MPV) 9.7 fL 6.7-11.0 NEUTROPHIL % (test code = NT%) 60.8 % 39.0-69.0 IMMATURE GRANULOCYTE % (test code = IG%) 1.0 % 0.0-5.0 LYMPHOCYTE % (test code = LY%) 26.7 % 25.0-55.0 MONOCYTE % (test code = MO%) 7.9 % 0.0-10.0 EOSINOPHIL % (test code = EO%) 2.6 % 0.0-5.0 BASOPHIL % (test code = BA%) 1.0 % 0.0-1.0 NUCLEATED RBC % (test code = NRBC%) 0.0 % 0-0 NEUTROPHIL # (test code = NT#) 4.69 K/mm3 1.8-7.7 IMMATURE GRANULOCYTE # (test code = IG#) 0.08 x10 3/uL 0-0.03 LYMPHOCYTE # (test code = LY#) 2.06 K/mm3 1.0-5.0 MONOCYTE # (test code = MO#) 0.61 K/mm3 0-0.8 EOSINOPHIL # (test code = EO#) 0.20 K/mm3 0.0-0.5 BASOPHIL # (test code = BA#) 0.08 K/mm3 0.0-0.2 NUCLEATED RBC # (test code = NRBC#) 0.00 K/mm3 0.0-0.1 MANUAL DIFF REQUIRED (test code = MDIFF) NO CBC W/AUTO [id number] 10:45:00* Test Item Value Reference Range Comments WHITE BLOOD CELL (test code = WBC) K/mm3 4.5-12.5 RED BLOOD CELL (test code = RBC) mill/mm3 4.0-5.8 HEMOGLOBIN (test code = HGB) 14.1 gram/dL 13.0-17.5 HEMATOCRIT (test code = HCT) 43.8 % 42.0-52.0 MEAN CELL VOLUME (test code = MCV) fL 80-98 MEAN CELL HGB (test code = MCH) picogram 27.0-33.0 MEAN CELL HGB CONCETRATION (test code = MCHC) gram/dL 33 .0-36.0 RED CELL DISTRIBUTION WIDTH (test code = RDW) % 11 .6-16.2 RED CELL DISTRIBUTION WIDTH SD (test code = RDW-SD) fL 37.0-51.0 PLATELET COUNT (test code = PLT) K/mm3 150-450 MEAN PLATELET VOLUME (test code = MPV) fL 6.7-11.0 NEUTROPHIL % (test code = NT%) % 39.0-69.0 IMMATURE GRANULOCYTE % (test code = IG%) % 0.0-5.0 LYMPHOCYTE % (test code = LY%) % 25.0-55.0 MONOCYTE % (test code = MO%) % 0.0-10.0 EOSINOPHIL % (test code = EO%) % 0.0-5.0 BASOPHIL % (test code = BA%) % 0.0-1.0 NEUTROPHIL # (test code = NT#) K/mm3 1.8-7.7 LYMPHOCYTE # (test code = LY#) K/mm3 1.0-5.0 MONOCYTE # (test code = MO#) K/mm3 0-0.8 EOSINOPHIL # (test code = EO#) K/mm3 0.0-0.5 BASOPHIL # (test code = BA#) K/mm3 0.0-0.2 CT ABDOMEN/PELVIS [id number] 12:33:00 [place] [address] Patient Name: MINISTERIO CARDOZO MR #: [id number] : 1945 Age/Sex: 73/M Req #: [id number] Adm Physician: Ordered by: ALONZO MALDONADO MD Report #: [id number] Location: CT Room/Bed: Procedure: [id number]/CT ABDOMEN/PELVIS WO Exam Date: 10/25/18 Exam T corazon: 0930 REPORT STATUS: Signed EXAM: CT ABDOMEN AND PELVIS without IV CONTRAST DATE: 10/25/2018 Time stamp on Exam: 9:50 AM INDICATION: Hematuria COMPARISON: CT scan of the abdomen and pelvis dated 2015 TECHNIQUE: The abdomen and pelvis were scanned using a multidetector helical scanner. Coronal and sagittal reformations were obtain ed. Routine protocol performed. Low-dose technique was utilized to mainta in the lowest effective dose to the patient. IV Contrast: None Oral Con trast: None Radiation Dose: Total DLP 756.87 mGy*cm Estimated effective dose : DLP x 0.015 x size factor FINDINGS: LOWER THORAX: No consolidations or nodules. Coronary artery calcification. LIVER: No masses BILIARY: The gal lbladder is unremarkable. No ductal dilatation. SPLEEN: No masses PANCRE : No masses ADRENALS: No nodules KIDNEYS: Nonobstructing left interpola r 4 mm stone. No masses. No hydronephrosis. GI TRACT: Postsurgical change s associated with a gastrectomy. VESSELS: Atherosclerotic calcification . PERITONEUM/RETROPERITONEUM: No free air or fluid LYMPH NODES: No lymphaden opathy REPRODUCTIVE ORGANS: Unremarkable BLADDER: Large stone previously present in the bladder that measured 1.9 cm now is represented by two small st ones with composite measurement of 0.7 cm and situated to the left side of the bladder. Prostate is enlarged measuring 6.1 x 7.0 cm. SOFT TISSUES: Small fat-containing umbilical hernia. BONES: No suspicious lytic or blastic bone le sions. Disc space narrowing at L5-S1. IMPRESSION: 1. Nonobstructing left renal stone. 2. Bladder stones with stone burden less than compared to pr evious study. 3. Significant prostate enlargement. Signed by: Dr. Reese duff DO on 10/25/2018 1:23 PM Dictated By: REESE CATES DO Electronica lly Signed By: REESE CATES DO on 10/25/18 1323 Transcribed By: JOYA on 03/08 1323 COPY TO: ALONZO MALDONADO MD CHEST 2 VIEWS [place] [address] Patient Name: MINISTERIO CARDOZO MR #: [id number] : 1945 Age/Sex: 71/M Req #: [id number] Adm Physician: Ordered by: ALONZO MALDONADO MD Report #: [id number] Location: RAD om/Bed: Procedure: [id number] DX/CHEST 2 VIEWS Exam D ate: 06/01/17 Exam Time: 1010 REPORT STATUS: Si gned PROCEDURE: CHEST 2 VIEWS TECHNIQUE: PA lateral chest INDICATION: Shortness of breath COMPARISON: Patients [facility], DX, CHEST 2 VIEW S, 07/20/2016, 13:05. FINDINGS: Stable left hemidiaphragm eventration . Lungs are otherwise clear. No pleural effusions. Normal heart size and medi astinal contour. CONCLUSION: No acute abnormality or interval change from June 2016. Dictated by: Cynthia Bingham M.D. on 07/2017 at 10:46 Electronically approved by: Cynthia Bingham M.D. on 06/01/2017 at 10:46 Dictated By: CYNTHIA BINGHAM MD [facility] Signed By: CYNTHIA BINGHAM MD on 06/01/17 1046 Transcribed By: SRIDHAR on 1046 COPY TO: ALONZO MALDONADO MD
--- OUTSIDE RECORDS SUMMARY | 2019-12-31 20:19 | XMS REPORT | Summary of Care ---
Author Organization Unknown Address Unknown Phone Unavailable Encounter KILLIAN Shields(LORA) [id number] Date(s): 11/01/14 - 11/01/14 [facility] [address] [place] [address]- Discharge Disposition: Home Physician Attending: Candido Walters MD Physician_Referring: Candido Walters MD Vital Signs No data available for this section Problem List Condition Effective Dates Status Health Status Informan t Acid Active reflux(Confirmed) Anxiety(Confirmed) Active Bleeding Active precautions(Confirme d) BPH - Benign Resolved prostatic hypertrophy(Confirme d) Bronchitis(Confirmed Resolved ) CAD - Coronary Active artery disease(Confirmed) Cancer(Confirmed)1 Resolved Cancer(Confirmed)2 06/11/11 Active Chemotherapy(Confirm Active ed) Chemotherapy(Confirm Active ed) Cough(Confirmed) Active Depression(Confirmed Active ) Diabetes Resolved mellitus(Confirmed) DVT - Deep vein Active thrombosis(Confirmed )3 Gastrectomy(Confirme Active d) Gastric Active cancer(Confirmed) HTN - Active Hypertension(Confirm ed) Hypertension(Confirm Active ed) Hypotension due to Resolved drugs(Confirmed)4 poor circulation of Resolved legs(Confirmed) Reflux(Confirmed) Resolved Shortness of Active breath(Confirmed)5 VRE(Confirmed)6, 7 Active Weakness - Active general(Confirmed) 1stomach 2stomach 3Left Arm 4associated with chemo therapy 5pt denies having any chest pain with shortness of breath left leg wound 7Problem added by Discern Expert. Allergies, Adverse Reactions, Alerts Substance Reaction Severity Status iodinated radiocontrast Active dyes Medications No data available for this section Results No data available for this section Immunizations No data available for this section Procedures No data available for this section Social History No data available for this section Assessment and Plan No data available for this section
--- OUTSIDE RECORDS SUMMARY | 2019-12-31 20:19 | XMS REPORT | Summary of Care ---
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
[2019-12-31] MEDS ORDERED: MORPHINE SULFATE INJ 4 MG/ML INJ 1ML IV STA (20:49)
[2019-12-31] MEDS ORDERED: PIPER-TAZ 3.375 GM 50 ML IV STA (20:49)
[2019-12-31] MEDS ORDERED: SODIUM CHLORIDE 0.9% 1000ML 1,000 ML IV STA (20:49)
[2019-12-31 20:53] LABS: BASOPHILS # (AUTO) 0.1 (0.0-0.1); BASOPHILS % 0.8 % (0.0-1.0); EOSINOPHILS # (AUTO) 0.2 (0.0-0.4); EOSINOPHILS % 1.9 % (0.0-6.0); HEMATOCRIT 41.9 % (38.2-49.6); HEMOGLOBIN 13.8 g/dL (14.0-18.0); LYMPHOCYTES # (AUTO) 2.9 (1.0-3.2); LYMPHOCYTES % 30.6 % (18.0-39.1); MEAN CORPUSCULAR HEMOGLOBIN 30.3 pg (28-32); MEAN CORPUSCULAR HGB CONC 32.9 g/dL (31-35); MEAN CORPUSCULAR VOLUME 92.1 fL (81-99); MONOCYTES # (AUTO) 0.7 (0.2-0.8); MONOCYTES % 7.8 % (4.4-11.3); NEUTROPHILS # (AUTO) 5.5 (2.1-6.9); NEUTROPHILS % 58.3 % (38.7-80.0); PLATELET COUNT 275 x10e3/uL (140-360); RED BLOOD COUNT 4.55 x10e6/uL (4.3-5.7); RED CELL DISTRIBUTION WIDTH 14.4 % (11.7-14.4)
[2019-12-31] MEDS ORDERED: PIPER-TAZ 3.375 GM 50 ML ONE (20:54)
[2019-12-31] MEDS ORDERED: SODIUM CHLORIDE 0.9% 1000ML 1,000 ML ONE (20:55)
[2019-12-31 21:03] LABS: INR 0.92; PROTHROMBIN TIME 12.9 seconds (11.9-14.5)
--- NOTE | 2019-12-31 21:08 | Emergency Department Note ---
History of Present Illnes History of Present Illness Stated Complaint: COMRESSOR FELL ON STOMACH, LEG History of Present Illness This is a 74 year old male presents to the ED for blunt abdominal wall trauma after a 700 lb compressor fell onto his lower abdominal wall from a 6 ft height. Senior Site Manager Required: No Radiation: non-radiation, abdomen Severity: severe Onset quality: sudden Past Medical/Family History Physician Review I have reviewed the patient's past medical and family history. Any updates have been documented here. Review of Systems Review of Systems Constitutional: no symptoms EENTM: no symptoms Cardiovascular: no symptoms Respiratory: no symptoms Gastrointestinal: abdominal pain Genitourinary: no symptoms Musculoskeletal: no symptoms Integumentary: no symptoms Neurological: no symptoms Psychological: no symptoms Endocrine: no symptoms Hematological/Lymphatic: no symptoms Review of other systems All other systems reviewed and negative. Physical Exam Related Data Allergies: Coded Allergies: iodine (Verified Allergy, Severe, 02/06/07) Physical Exam CONSTITUTIONAL Constitutional: well-developed, well-nourished HENT HENT: normocephalic, atraumatic, oropharynx clear/moist, nose normal HENT - Ear: left ext ear normal, right ext ear normal EYES Eyes: PERRL, conjunctivae normal NECK Neck: ROM normal PULMONARY Pulmonary: effort normal, breath sounds normal CARDIOVASCULAR Cardiovascular: heart sounds normal, capillary refill normal, normal rate, tachycardia GASTROINTESTINAL Abdominal: soft, bowel sounds normal, tender, other (RLQ contusoin) GENITOURINARY Genitourinary: exam deferred SKIN Skin: warm, dry MUSCULOSKELETAL Musculoskeletal: ROM normal NEUROLOGICAL Neurological: alert, oriented x 3, no gross motor or sensory deficits PSYCHOLOGICAL Psychiatric/behavioral: mood/affect normal, judgement normal Results Laboratory Laboratory Laboratory Tests Test 12/31/19 20:40 White Blood Count 9.43 x10e3/uL (4.8-10.8) Red Blood Count 4.55 x10e6/uL (4.3-5.7) Hemoglobin 13.8 g/dL (14.0-18.0) Hematocrit 41.9 % (38.2-49.6) Mean Corpuscular Volume 92.1 fL (81-99) Mean Corpuscular Hemoglobin 30.3 pg (28-32) Mean Corpuscular Hemoglobin Concent 32.9 g/dL (31-35) Red Cell Distribution Width 14.4 % (11.7-14.4) Platelet Count 275 x10e3/uL (140-360) Neutrophils (%) (Auto) 58.3 % (38.7-80.0) Lymphocytes (%) (Auto) 30.6 % (18.0-39.1) Monocytes (%) (Auto) 7.8 % (4.4-11.3) Eosinophils (%) (Auto) 1.9 % (0.0-6.0) Basophils (%) (Auto) 0.8 % (0.0-1.0) Neutrophils # (Auto) 5.5 (2.1-6.9) Lymphocytes # (Auto) 2.9 (1.0-3.2) Monocytes # (Auto) 0.7 (0.2-0.8) Eosinophils # (Auto) 0.2 (0.0-0.4) Basophils # (Auto) 0.1 (0.0-0.1) Absolute Immature Granulocyte (auto 0.06 x10e3/uL (0-0.1) Prothrombin Time 12.9 seconds (11.9-14.5) Prothromb Time International Ratio 0.92 Sodium Level 142 mmol/L (136-145) Potassium Level 3.7 mmol/L (3.5-5.1) Chloride Level 109 mmol/L (98-107) Carbon Dioxide Level 22 mmol/L (22-29) Anion Gap 14.7 mmol/L (8-16) Blood Urea Nitrogen 20 mg/dL (7-26) Creatinine 1.22 mg/dL (0.72-1.25) Estimat Glomerular Filtration Rate 58 ML/MIN (60-) BUN/Creatinine Ratio 16 (6-25) Glucose Level 108 mg/dL (74-118) Calcium Level 9.1 mg/dL (8.4-10.2) Total Bilirubin 0.6 mg/dL (0.2-1.2) Aspartate Amino Transf (AST/SGOT) 32 IU/L (5-34) Alanine Aminotransferase (ALT/SGPT) 49 IU/L (0-55) Alkaline Phosphatase 100 IU/L (40-150) Creatine Kinase 217 IU/L (30-200) Creatine Kinase MB 3.90 ng/mL (0-5.0) Troponin I 0.018 ng/mL (0-0.300) Total Protein 7.3 g/dL (6.5-8.1) Albumin 4.1 g/dL (3.5-5.0) Globulin 3.2 g/dL (2.3-3.5) Albumin/Globulin Ratio 1.3 (0.8-2.0) Lab results reviewed: Yes Critical Care Time Total Critical Care Time (min): 31 Critcal care necessary due to: trauma Subsequent provider I assumed direction of critical care for this patient from another provider of my specialty. Assessment & Plan Assessment & Plan Problems: (1) Blunt trauma of abdominal wall Reassessment Reassessment S/W Dr Martinez at [facility] for trauma evaluation who graciously accepted patient to her service Depart Disposition: TRANS TO OTHER [facility] FACILITY CINDY GOULD DO December 31, 2019 20:46
[2019-12-31] MEDS ORDERED: ONDANSETRON HCL INJ 2MG/ML 2ML 2 MG/ML VIAL IV STA (21:09)
[2019-12-31 21:13] LABS: ALBUMIN 4.1 g/dL (3.5-5.0); ALBUMIN/GLOBULIN RATIO 1.3 (0.8-2.0); ANION GAP 14.7 mmol/L (8-16); CALCIUM 9.1 mg/dL (8.4-10.2); CREATININE, SERUM 1.22 mg/dL (0.72-1.25); POTASSIUM 3.7 mmol/L (3.5-5.1)
[2019-12-31 21:19] LABS: CREATINE KINASE MB 3.9 ng/mL (0-5.0)
[2019-12-31 23:17] VITALS: BP 148/88
--- NOTE | 2020-01-01 02:27 | Diagnostic Imaging Report ---
EXAM: CT Abdomen and Pelvis WITHOUT contrast INDICATION: Trauma COMPARISON: None. TECHNIQUE: Abdomen and pelvis were scanned utilizing a multidetector helical scanner from the lung base to the pubic symphysis without administration of IV contrast. Absence of intravenous contrast decreases sensitivity for detection of focal lesions and vascular pathology. Coronal and sagittal reformations were obtained. Routine protocol was performed. IV CONTRAST: None ORAL CONTRAST: None COMPLICATIONS: None RADIATION DOSE: Total DLP: 809 mGy*cm Estimated effective dose: (DLP x 0.015 x size factor) mSv CTDIvol has been reviewed. It is below the limits set by the Radiation Protocol Committee (RPC). Dose modulation, iterative reconstruction, and/or weight based adjustment of the mA/kV was utilized to reduce the radiation dose to as low as reasonably achievable. FINDINGS: LINES and TUBES: None. LOWER THORAX: Bibasilar atelectasis and/or scarring. Dense coronary artery calcifications. HEPATOBILIARY: No focal hepatic lesions. No biliary ductal dilation. GALLBLADDER: No radio-opaque stones or sludge. No wall thickening. SPLEEN: No splenomegaly. PANCREAS: No focal masses or ductal dilatation. ADRENALS: No adrenal nodules KIDNEYS/URETERS: No hydronephrosis. No cystic or solid mass lesions. Punctate left intrarenal calculi. GI TRACT: No abnormal distention, wall thickening, or evidence of bowel obstruction. Gastric surgical change. PELVIC ORGANS/BLADDER: Unremarkable. LYMPH NODES: No lymphadenopathy. VESSELS: Scattered atherosclerotic calcifications. PERITONEUM / RETROPERITONEUM: No free air or fluid. BONES: No acute osseous abnormality. SOFT TISSUES: Unremarkable. IMPRESSION: No acute abdominal or pelvic abnormality. Signed by: Gamaliel Ramos MD on 01/01/2020 2:21 AM
== END 2019-12-31 21:35 | disposition other institution (70) ==
LOC: ER 20:15
DX: S30.1XXA Contusion of abdominal wall, initial encounter (principal); W20.8XXA Other cause of strike by thrown, projected or falling object, initial encounter; Z85.028 Personal history of other malignant neoplasm of stomach
CPT/HCPCS: 36415; 74176; 80053; 82550; 82553; 84484; 85025; 85610; 96374; 96376; 99284; J2270; J2405; J2543; J7030

== ENCOUNTER 2020-09-02 21:53 | Inpatient (IN) | payer MEDICARE ==
[~2020-09-02] VITALS: Ht 177.8 cm; Wt 104.3 kg
[2020-09-02] MEDS ORDERED: AZITHROMYCIN 500MG/NS 250 ML 250 ML IV STA (22:23)
[2020-09-02] MEDS ORDERED: DEXAMETHASONE SOD PHOS 10 MG/1 ML VIAL IV STA (22:24)
[2020-09-02] MEDS ORDERED: ACETAMINOPHEN 325 MG TAB PO ONE (22:45)
[2020-09-02 23:11] LABS: BASOPHILS % 0.2 % (0.0-1.0); EOSINOPHILS % 0.2 % (0.0-6.0); HEMATOCRIT 41.4 % (38.2-49.6); LYMPHOCYTES % 10.5 % (18.0-39.1); MEAN CORPUSCULAR HEMOGLOBIN 30.2 pg (28-32); MEAN CORPUSCULAR HGB CONC 33.8 g/dL (31-35); MEAN CORPUSCULAR VOLUME 89.4 fL (81-99); MONOCYTES # (AUTO) 0.9 (0.2-0.8); MONOCYTES % 9.6 % (4.4-11.3); NEUTROPHILS # (AUTO) 7.1 (2.1-6.9); NEUTROPHILS % 78.6 % (38.7-80.0); PLATELET COUNT 340 x10e3/uL (140-360); RED BLOOD COUNT 4.63 x10e6/uL (4.3-5.7); RED CELL DISTRIBUTION WIDTH 13.2 % (11.7-14.4)
[2020-09-02 23:29] LABS: ALBUMIN 2.9 g/dL (3.5-5.0); ALBUMIN/GLOBULIN RATIO 0.7 (0.8-2.0); ANION GAP 15.1 mmol/L (8-16); CALCIUM 8.8 mg/dL (8.4-10.2); CREATININE, SERUM 1.31 mg/dL (0.72-1.25); POTASSIUM 4.1 mmol/L (3.5-5.1)
[2020-09-02 23:33] LABS: CREATINE KINASE MB 1.8 ng/mL (0-5.0)
[2020-09-03] VITALS (8 sets, daily range): BP systolic 103–140; BP diastolic 59–89
[2020-09-03] MEDS ORDERED: AZITHROMYCIN250 MG PO (04:06)
[2020-09-03] MEDS ORDERED: BENZONATATE100 MG PO (04:08)
[2020-09-03 07:38] LABS: BASOPHILS % 0.2 % (0.0-1.0); HEMOGLOBIN 13.6 g/dL (14.0-18.0); LYMPHOCYTES # (AUTO) 0.5 (1.0-3.2); LYMPHOCYTES % 8.1 % (18.0-39.1); MEAN CORPUSCULAR HEMOGLOBIN 30.2 pg (28-32); MEAN CORPUSCULAR HGB CONC 33.2 g/dL (31-35); MEAN CORPUSCULAR VOLUME 90.9 fL (81-99); MONOCYTES # (AUTO) 0.3 (0.2-0.8); MONOCYTES % 4.1 % (4.4-11.3); NEUTROPHILS # (AUTO) 5.2 (2.1-6.9); NEUTROPHILS % 86.3 % (38.7-80.0); PLATELET COUNT 336 x10e3/uL (140-360); RED BLOOD COUNT 4.51 x10e6/uL (4.3-5.7); RED CELL DISTRIBUTION WIDTH 13.1 % (11.7-14.4)
[2020-09-03 08:09] LABS: ALBUMIN 2.7 g/dL (3.5-5.0); ALBUMIN/GLOBULIN RATIO 0.6 (0.8-2.0); ANION GAP 13.5 mmol/L (8-16); CALCIUM 8.8 mg/dL (8.4-10.2); CREATININE, SERUM 1.21 mg/dL (0.72-1.25); POTASSIUM 4.5 mmol/L (3.5-5.1)
[2020-09-03 08:36] LABS: CREATINE KINASE MB 1.9 ng/mL (0-5.0)
[2020-09-03] MEDS ORDERED: ONDANSETRON HCL INJ 2MG/ML 2ML 2 MG/ML VIAL IV PRN (11:00)
[2020-09-03] MEDS ORDERED: LACTATED RINGER'S 1,000 ML INJ ONE (11:00)
[2020-09-03] MEDS ORDERED: DEXTROSE 50% SYRINGE 50 ML IV PRN (11:00)
[2020-09-03] MEDS: CEFTRIAXONE SOD 1 GM/NS 50 ML 50 ML IV SCH (12:03)
[2020-09-03] MEDS: INSULIN REGULAR, HUMAN 100 UNIT/1 ML 3ML VIAL SQ SCH ×3 (15:31→20:30)
[2020-09-03 16:07] LABS: CREATINE KINASE 286 IU/L (30-200)
[2020-09-03] MEDS ORDERED: REMDESIVIR 200MG/NS 100ML 200 MG in SODIUM CHLORIDE 0.9% 100 ML 100 ML IV ONE (19:45)
[2020-09-03] MEDS ORDERED: ZOLPIDEM TARTRATE 5 MG TAB PO PRN (21:00)
[2020-09-03] MEDS: AZITHROMYCIN 500MG/NS 250 ML 250 ML IV SCH (21:34)
[2020-09-04] VITALS (9 sets, daily range): BP systolic 117–156; BP diastolic 51–92
[2020-09-04 04:48] LABS: BASOPHILS % 0.2 % (0.0-1.0); EOSINOPHILS % 0.1 % (0.0-6.0); HEMOGLOBIN 13.5 g/dL (14.0-18.0); LYMPHOCYTES # (AUTO) 0.9 (1.0-3.2); MEAN CORPUSCULAR HEMOGLOBIN 30.4 pg (28-32); MEAN CORPUSCULAR HGB CONC 32.9 g/dL (31-35); MEAN CORPUSCULAR VOLUME 92.3 fL (81-99); MONOCYTES # (AUTO) 1.1 (0.2-0.8); NEUTROPHILS # (AUTO) 9.6 (2.1-6.9); NEUTROPHILS % 81.2 % (38.7-80.0); PLATELET COUNT 379 x10e3/uL (140-360); RED BLOOD COUNT 4.44 x10e6/uL (4.3-5.7); RED CELL DISTRIBUTION WIDTH 12.8 % (11.7-14.4)
[2020-09-04 05:12] LABS: ALANINE AMINOTRANSFERASE 26 IU/L (0-55); ALBUMIN 2.5 g/dL (3.5-5.0); ALBUMIN/GLOBULIN RATIO 0.6 (0.8-2.0); ALKALINE PHOSPHATASE 61 IU/L (40-150); ANION GAP 14.1 mmol/L (8-16); BLOOD UREA NITROGEN 27 mg/dL (7-26); BUN/CREATININE RATIO 30 (6-25); CALCIUM 8.8 mg/dL (8.4-10.2); CARBON DIOXIDE 24 mmol/L (22-29); CHLORIDE 104 mmol/L (98-107); EST GLOMERULAR FILTRATION RATE > 60 ML/MIN (60-); GLUCOSE 127 mg/dL (74-118); POTASSIUM 4.1 mmol/L (3.5-5.1); SODIUM 138 mmol/L (136-145)
[2020-09-04] MEDS: INSULIN REGULAR, HUMAN 100 UNIT/1 ML 3ML VIAL SQ SCH ×4 (07:30→20:35)
[2020-09-04 08:21] LABS: LYMPHOCYTES % (MANUAL) 6 % (19-48); MONOCYTES % (MANUAL) 8 % (3.4-9.0); NEUTROPHILS % (MANUAL) 86 % (40-74)
[2020-09-04] MEDS: CEFTRIAXONE SOD 1 GM/NS 50 ML 50 ML IV SCH (12:18)
[2020-09-04] MEDS: REMDESIVIR 100MG/NS 100ML 100 MG in SODIUM CHLORIDE 0.9% 100 ML 100 ML IV SCH (17:45)
[2020-09-04] MEDS ORDERED: GUAIFENESIN 200 MG/10 ML UDC PO PRN ×2 (19:45→20:15)
[2020-09-04] MEDS: ACETAMINOPHEN 325 MG TAB PO PRN (21:11)
[2020-09-04] MEDS: AZITHROMYCIN 500MG/NS 250 ML 250 ML IV SCH (21:12)
[2020-09-04] MEDS: BENZONATATE 100 MG CAP PO SCH (21:12)
[2020-09-05] VITALS (8 sets, daily range): BP systolic 116–152; BP diastolic 78–99
[2020-09-05] MEDS: ACETAMINOPHEN 325 MG TAB PO PRN (06:30)
[2020-09-05] MEDS: INSULIN REGULAR, HUMAN 100 UNIT/1 ML 3ML VIAL SQ SCH ×4 (07:30→20:49)
[2020-09-05] MEDS: DEXAMETHASONE SOD PHOS 10 MG/1 ML VIAL IV SCH (11:10)
[2020-09-05] MEDS: BENZONATATE 100 MG CAP PO SCH ×3 (11:11→21:50)
[2020-09-05] MEDS: CEFTRIAXONE SOD 1 GM/NS 50 ML 50 ML IV SCH (13:15)
[2020-09-05] MEDS: REMDESIVIR 100MG/NS 100ML 100 MG in SODIUM CHLORIDE 0.9% 100 ML 100 ML IV SCH (18:01)
[2020-09-05] MEDS: AZITHROMYCIN 500MG/NS 250 ML 250 ML IV SCH (21:51)
[2020-09-06] VITALS (8 sets, daily range): BP systolic 123–134; BP diastolic 72–96
[2020-09-06] MEDS: INSULIN REGULAR, HUMAN 100 UNIT/1 ML 3ML VIAL SQ SCH ×4 (08:15→21:00)
[2020-09-06] MEDS: DEXAMETHASONE SOD PHOS 10 MG/1 ML VIAL IV SCH (10:30)
[2020-09-06] MEDS: BENZONATATE 100 MG CAP PO SCH ×3 (10:30→21:00)
[2020-09-06] MEDS: CEFTRIAXONE SOD 1 GM/NS 50 ML 50 ML IV SCH (13:47)
[2020-09-06] MEDS: REMDESIVIR 100MG/NS 100ML 100 MG in SODIUM CHLORIDE 0.9% 100 ML 100 ML IV SCH (16:51)
[2020-09-06] MEDS: AZITHROMYCIN 500MG/NS 250 ML 250 ML IV SCH (21:56)
[2020-09-07] VITALS (8 sets, daily range): BP systolic 106–140; BP diastolic 68–93
[2020-09-07 05:31] LABS: BASOPHILS % 0.2 % (0.0-1.0); EOSINOPHILS % 0.1 % (0.0-6.0); HEMATOCRIT 40.7 % (38.2-49.6); HEMOGLOBIN 13.4 g/dL (14.0-18.0); LYMPHOCYTES # (AUTO) 1.3 (1.0-3.2); LYMPHOCYTES % 8.3 % (18.0-39.1); MEAN CORPUSCULAR HEMOGLOBIN 30.7 pg (28-32); MEAN CORPUSCULAR HGB CONC 32.9 g/dL (31-35); MEAN CORPUSCULAR VOLUME 93.1 fL (81-99); MONOCYTES # (AUTO) 1.1 (0.2-0.8); MONOCYTES % 7.3 % (4.4-11.3); NEUTROPHILS % 79.9 % (38.7-80.0); PLATELET COUNT 538 x10e3/uL (140-360); RED BLOOD COUNT 4.37 x10e6/uL (4.3-5.7); RED CELL DISTRIBUTION WIDTH 12.6 % (11.7-14.4)
[2020-09-07 05:58] LABS: ANION GAP 15.2 mmol/L (8-16); BLOOD UREA NITROGEN 28 mg/dL (7-26); BUN/CREATININE RATIO 33 (6-25); CALCIUM 8.6 mg/dL (8.4-10.2); CARBON DIOXIDE 25 mmol/L (22-29); CHLORIDE 103 mmol/L (98-107); CREATININE, SERUM 0.86 mg/dL (0.72-1.25); EST GLOMERULAR FILTRATION RATE > 60 ML/MIN (60-); GLUCOSE 146 mg/dL (74-118); POTASSIUM 4.2 mmol/L (3.5-5.1); SODIUM 139 mmol/L (136-145)
[2020-09-07] MEDS: DEXAMETHASONE SOD PHOS 10 MG/1 ML VIAL IV SCH (07:55)
[2020-09-07] MEDS: BENZONATATE 100 MG CAP PO SCH ×3 (07:55→21:00)
[2020-09-07] MEDS: INSULIN REGULAR, HUMAN 100 UNIT/1 ML 3ML VIAL SQ SCH ×4 (08:26→21:00)
[2020-09-07] MEDS: CEFTRIAXONE SOD 1 GM/NS 50 ML 50 ML IV SCH (11:42)
[2020-09-07] MEDS: REMDESIVIR 100MG/NS 100ML 100 MG in SODIUM CHLORIDE 0.9% 100 ML 100 ML IV SCH (16:13)
[2020-09-07] MEDS: AZITHROMYCIN 500MG/NS 250 ML 250 ML IV SCH (21:09)
[2020-09-08] VITALS: BP 125/87
[2020-09-08] MEDS: INSULIN REGULAR, HUMAN 100 UNIT/1 ML 3ML VIAL SQ SCH (07:30)
[2020-09-08 08:00] VITALS: BP 133/82
[2020-09-08 08:30] VITALS: BP 133/82
[2020-09-08] MEDS: DEXAMETHASONE SOD PHOS 10 MG/1 ML VIAL IV SCH (08:54)
[2020-09-08] MEDS: BENZONATATE 100 MG CAP PO SCH (08:54)
[2020-09-08] MEDS ORDERED: VENTOLIN HFA18 GM INH (11:29)
[2020-09-08] MEDS ORDERED: DECADRON4 M1 PO (11:29)
== END 2020-09-08 12:13 | disposition home or self-care (01) | DRG 177 ==
LOC: ER 21:57 → ERHOLD 09-03 00:08 → IMCU 09-03 02:53 → OBSVTOIN 09-03 16:04
PROVIDERS: ADMIT Internal Medicine; ATTEND Internal Medicine
PROC: 3E0333Z Introduction of Anti-inflammatory into Peripheral Vein, Percutaneous Approach (ICD-10-PCS; principal; 2020-09-02)
PROC: XW033E5 Introduction of Remdesivir Anti-infective into Peripheral Vein, Percutaneous Approach, New Technology Group 5 (ICD-10-PCS; 2020-09-03)
DX: U07.1 COVID-19 (principal); J12.82 Pneumonia due to coronavirus disease 2019; J96.01 Acute respiratory failure with hypoxia; J15.9 Unspecified bacterial pneumonia; N17.9 Acute kidney failure, unspecified; R73.9 Hyperglycemia, unspecified; D64.9 Anemia, unspecified; I10 Essential (primary) hypertension; Z91.041 Radiographic dye allergy status; Z85.028 Personal history of other malignant neoplasm of stomach; Z83.3 Family history of diabetes mellitus; Z82.49 Family history of ischemic heart disease and other diseases of the circulatory system
CPT/HCPCS: 36415; 71045; 80048; 80053; 82550; 82553; 82948; 83036; 84484; 85025; 93005; 99284; J0456; J0696; J1100; J1817; J7121; U0002